=== PATIENT | female | born 1980 | race Caucasian/White ===

== ENCOUNTER 2023-04-07 20:08 | Outpatient (REF) | payer BC, SELFPAY ==
[2023-04-13 10:10] LABS: Age Gdln ACOG Testing Note (.); HPV Aptima Negative (Negative); IGP, Aptima HPV, rfx 16/18,45 Note (.)
== END 2023-04-07 20:09 | disposition home or self-care (01) ==
LOC: LAB 20:08
PROVIDERS: Visit Provider Obstetrics & Gynecology
DX: Z01.419 Encounter for gynecological examination (general) (routine) without abnormal findings (principal)
CPT/HCPCS: 87624; G0145

== ENCOUNTER 2023-04-10 10:14 | Outpatient (OUT) | payer BC, SELFPAY ==
--- NOTE | 2023-04-10 10:17 | MM_ITS ---
Patient: HERMINIA GREENWOOD Exam Date: 04/10/2023 : 1980 Gender:F Ordering : DR Harlan Taylor . Admission #: [id number] Family : Non-Staff Physician Order #: [id number] CLICK HERE TO VIEW EXAM RADIOLOGY REPORT PROCEDURE: MM TOMOSYNTHESIS SCREENING BI COMPARISON: None. INDICATIONS: Screening Calculator Name NCI Breast Cancer Risk Assessment Tool 5 Year Breast Cancer Risk 0.40% Lifetime Breast Cancer Risk 7.30% Personal Breast Cancer No Personal Ovarian Cancer No Treatments None Family Cancers None LOCATION: [facility] BREAST COMPOSITION: Scattered areas fibroglandular density. FINDINGS: DIAGNOSTIC CATEGORY 1--NEGATIVE. Scattered benign-appearing calcifications are present. Scattered benign-appearing lymph nodes are present. RIGHT BREAST: No significant suspicious finding. LEFT BREAST: No significant suspicious finding. RECOMMENDATIONS: ROUTINE MAMMOGRAM AND CLINICAL EVALUATION IN 12 MONTHS. PLEASE NOTE: A NORMAL MAMMOGRAM DOES NOT EXCLUDE THE POSSIBILITY OF BREAST CANCER. A CLINICALLY SUSPICIOUS PALPABLE LUMP SHOULD BE BIOPSIED. Dictated by: Ghulam Lopez MD on 04/10/2023 at 12:39 Approved by: Ghulam Lopez MD on 04/10/2023 at 12:40
--- NOTE | 2023-04-10 10:18 | US_ITS ---
The [address] [address] Patient Name: HERMINIA GREENWOOD MRN: [id number] date: 1980 Sex: F Assigned Patient Location: Current Patient Location: US Accession/Order Number: [id number] Exam Date: 04/10/2023 10:30 Report Date: 04/10/2023 10:59 At the request of: THANG KOCH Procedure: US pelvis w/ transvaginal EXAMINATION: US pelvis w/ transvaginal HISTORY: Pelvic Pain In Females R10.2 , menorrhagia COMPARISON: Ultrasound pelvis 02/02/2021 TECHNIQUE: Transabdominal and/or transvaginal sonographic examination was performed as indicated by examination type. FINDINGS: UTERUS: 1.7 cm nabothian cysts within cervix; otherwise normal size, echotexture, and appearance of the uterus. Uterus size: 9.3 x 5.8 x 5.0 cm ENDOMETRIUM: Normal homogeneous appearance. Endometrial thickness: RIGHT OVARY: Normal size and appearance. Blood flow present within ovary on color Doppler. Ovary size: 3.8 x 2.0 x 1.8 cm LEFT OVARY: Not seen. No suspicious adnexal findings. CUL-DE-SAC: Unremarkable. No significant free fluid. BLADDER: Unremarkable. OTHER: None. US/US pelvis w/ transvaginal IMPRESSION: 1. No acute or suspicious findings to account for patient's symptoms. 2. Prominent nabothian cysts within marshall of cervix; likely incidental. Electronically authenticated by: TREY SANCHEZ Date: 04/10/2023 10:59
[2023-04-10 11:19] LABS: Basophils Absolute Auto 0.1 10^3/uL (0.0-0.1); Basophils Percent Auto 1.2 % (0.2-2.0); Eosinophils Absolute Auto 0.1 10^3/uL (0.0-0.7); Eosinophils Percent Auto 1.6 % (0.9-7.0); Hematocrit 39.1 % (36.0-48.0); Hemoglobin 12.5 g/dL (12.0-16.0); Immature Granulocytes Abs Auto 0.02 10^3/uL (0.00-0.03); Immature Granulocytes Pct Auto 0.2 % (0.0-0.5); Lymphocytes Absolute Auto 2.9 10^3/uL (1.2-3.8); Lymphocytes Percent Auto 34.6 % (20.5-60.0); Mean Corpuscular Hemoglobin 28.2 pg (26.7-34.0); Mean Corpuscular Volume 88.1 fL (81.0-99.0); Monocytes Absolute Auto 0.9 10^3/uL (0.3-0.8); Monocytes Percent Auto 10.7 % (1.7-12.0); Neutrophils Absolute Auto 4.3 10^3/uL (1.4-6.5); Neutrophils Percent Auto 51.7 % (43.0-75.0); Platelet Count 349 10^3/uL (150-450); Red Blood Count 4.44 10^6/uL (4.20-5.40); Red Cell Distribution Width 13.2 % (11.0-15.0); White Blood Count 8.2 10^3/uL (4.0-11.0)
[2023-04-10 11:28] LABS: INR 0.95; Partial Thromboplastin Time 30.2 sec (22.3-36.2); Prothrombin Time 10.1 sec (9.0-11.6)
[2023-04-10 11:33] LABS: Estimated Average Glucose 111 mg/dL; Glycohemoglobin A1C 5.5 % (4.5-6.2)
[2023-04-10 11:44] LABS: HCG Quantitative <1 mIU/mL
== END 2023-04-10 10:15 | disposition home or self-care (01) ==
LOC: US 10:14
PROVIDERS: Visit Provider Obstetrics & Gynecology
DX: N92.1 Excessive and frequent menstruation with irregular cycle (principal); R10.2 Pelvic and perineal pain; Z12.31 Encounter for screening mammogram for malignant neoplasm of breast; Z01.419 Encounter for gynecological examination (general) (routine) without abnormal findings; N88.8 Other specified noninflammatory disorders of cervix uteri
CPT/HCPCS: 36415; 76830; 76856; 77063; 77067; 83036; 84443; 84702; 85025; 85610; 85730

== ENCOUNTER 2023-06-25 09:05 | Outpatient (OUT) | payer BC, SELFPAY ==
[2023-06-25 09:58] LABS: Basophils Absolute Auto 0.1 10^3/uL (0.0-0.1); Basophils Percent Auto 1.2 % (0.2-2.0); Eosinophils Absolute Auto 0.2 10^3/uL (0.0-0.7); Eosinophils Percent Auto 2.7 % (0.9-7.0); Hematocrit 38.5 % (36.0-48.0); Hemoglobin 12.1 g/dL (12.0-16.0); Immature Granulocytes Abs Auto 0.02 10^3/uL (0.00-0.03); Immature Granulocytes Pct Auto 0.2 % (0.0-0.5); Lymphocytes Absolute Auto 2.2 10^3/uL (1.2-3.8); Lymphocytes Percent Auto 26.6 % (20.5-60.0); Mean Corpuscular HGB Conc 31.4 g/dL (29.9-35.2); Mean Corpuscular Hemoglobin 27.5 pg (26.7-34.0); Mean Corpuscular Volume 87.5 fL (81.0-99.0); Mean Platelet Volume 9.5 fL (9.5-13.5); Monocytes Absolute Auto 0.8 10^3/uL (0.3-0.8); Monocytes Percent Auto 9.3 % (1.7-12.0); Platelet Count 302 10^3/uL (150-450); Red Cell Distribution Width 14.3 % (11.0-15.0); White Blood Count 8.4 10^3/uL (4.0-11.0)
--- NOTE | 2023-06-25 10:00 | XR_ITS ---
The [address] [address] Patient Name: HERMINIA GREENWOOD MRN: [id number] date: 1980 Sex: F Assigned Patient Location: [facility] Current Patient Location: [facility] Accession/Order Number: [id number] Exam Date: 06/25/2023 09:48 Report Date: 06/25/2023 10:12 At the request of: THANG KOCH Procedure: XR chest 2V EXAM: XR chest 2V HISTORY: Preop exam COMPARISON: None. TECHNIQUE: PA and lateral views of the chest. FINDINGS: The cardiomediastinal silhouette is normal. No focal consolidation is identified. There is no pneumothorax. No pleural effusion is noted. The osseous structures are intact. XR/XR chest 2V IMPRESSION: No acute cardiopulmonary process. Electronically authenticated by: JULES HOLBROOK Date: 06/25/2023 10:12
[2023-06-25 10:30] LABS: Bilirubin Total 0.3 mg/dL (0.2-1.0); Estimated GFR (African America >60 (>=60); Estimated GFR (Non-African Ame >60 (>=60); Glucose 86 mg/dL (74-106)
[2023-06-25 11:15] LABS: INR 0.95; Partial Thromboplastin Time 29.4 sec (22.3-36.2); Prothrombin Time 10.1 sec (9.0-11.6)
[2023-06-25 11:17] LABS: Alanine Aminotransferase 47 U/L (14-59); Albumin Globulin Ratio 1.1; Albumin Level 3.6 g/dL (3.4-5.0); Alkaline Phosphatase 73 U/L (46-116); Anion Gap 10.9; Aspartate Amino Transferase 20 U/L (15-37); BUN Creatinine Ratio 18.8; Bilirubin Direct <0.1 mg/dL (0.0-0.2); Calcium 8.6 mg/dL (8.5-10.1); Carbon Dioxide 26.1 mmol/L (21.0-32.0); Chloride 99 mmol/L (98-107); Globulin 3.4 g/dL; Sodium 132 mmol/L (136-145)
== END 2023-06-25 09:06 | disposition home or self-care (01) ==
LOC: PST 09:06
PROVIDERS: Visit Provider Obstetrics & Gynecology
DX: Z01.812 Encounter for preprocedural laboratory examination (principal); Z01.810 Encounter for preprocedural cardiovascular examination; R10.2 Pelvic and perineal pain; N94.10 Unspecified dyspareunia; N93.9 Abnormal uterine and vaginal bleeding, unspecified
CPT/HCPCS: 36415; 71046; 80048; 80076; 85025; 85610; 85730

== ENCOUNTER 2023-07-06 14:21 | Outpatient (OUT) | payer BC, SELFPAY | END 2023-07-06 14:22 | disposition home or self-care (01) | LOC: LAB 14:21 | PROVIDERS: Visit Provider Obstetrics & Gynecology | DX: R10.2 Pelvic and perineal pain (principal); N93.9 Abnormal uterine and vaginal bleeding, unspecified; N94.10 Unspecified dyspareunia | CPT/HCPCS: 36415; 86850; 86900; 86901 ==

== ENCOUNTER 2023-07-09 11:11 | Day surgery (SDC) | payer BC, SELFPAY ==
[2023-06-25 09:41] VITALS: BP 106/75; PULSE 78; RESP 18; TEMP 36.2; O2SAT 97; BMI 43.6
[2023-07-09] VITALS (9 sets, daily range): BP systolic 93–119; BP diastolic 59–76; PULSE 73–100; RESP 12–20; TEMP 36.4–36.7; O2SAT 94–99; BMI 45.0
[2023-07-09 11:44] LABS: HCG Quantitative <1 mIU/mL
[2023-07-09] MEDS: LACTATED RINGER'S SOLUTION 1,000 ML 50 ML IV ×2 (12:08→15:01)
[2023-07-09] MEDS: CEFAZOLIN SODIUM/DEXTROSE,ISO 2 GM/50 ML PIGGYBACK IV ×2 (13:32→19:57)
--- NOTE | 2023-07-09 16:25 | P.ON_ITS ---
Brief Operative Note Date of procedure: 07/09/23 Pre-op diagnosis: menorrhagia, dysmenorrhea, dyspareunia, pelvic pain Post-op diagnosis: same as pre-op Procedure: NAME OF PROCEDURE: ? Robotic assisted laparoscopic hysterectomy with cystoscopy, bilateral salpingectomy PROCEDURE:? The patient was taken back to the operating room, where she was prepped and draped in the normal sterile fashion after being placed in the dorsal lithotomy position.? Patient?s anesthesia was found to be adequate.? Surgical timeout was performed using two patient identifiers.? SCDs were on and in place.? Two grams of Ancef were given prior to the surgery.? Sterile Marques catheter was inserted.? Standard size VCare was secured to the uterine cervix and the surgeon changed gloves.? Attention then was turned to the patient's abdomen, where a supraumbilical incision was then made.? Two S retractors were used to identify the patient?s fascia.? The fascia was then tented up using Chrystal clamps and the patient?s fascia was incised sharply.? Patient?s abdomen was identified and entered bluntly.? The patient had the trocar placed and a pneumoperitoneum was obtained.? Approximately 4 liters of CO2 gas was used.? The camera was then placed through the trocar.? At this time, two robot trocars were placed in the patient?s left and right side, two hand widths from the midline, and this was placed under direct visualization.? The patient?s tube on the right side was tented up and the vessel sealer was then used to come across the mesosalpinx, and this was carried down to the uterine ovarian ligament.? The vessel sealer was carried down serially to the broad ligament, to the area of the bladder flap, which was then created anteriorly, and the uterine arteries were skeletonized and sealed using the vessel sealer.? The colpotomy was made using the monopolar cautery on cut, and this was carried circumferentially, posteriorly to anteriorly, until the uterus was amputated.? The specimen was then removed intact through the vagina, without difficulty.? The vagina was then closed using two running V-Loc in a non-lock fashion.? The robot was undocked.? The abdomen was desufflated.? The skin defects were closed using 4-0 Vicryl.? Please note, the fascia was closed using 0 Vicryl.? Sponge, lap and needle counts were correct x2.? Patient was taken to recovery room in stable condition.? The patient was awakened by Anesthesia first.? Patient tolerated procedure well.??Please note left ovarian cystectomy was performed using the vessel sealer Surgeon: Harlan Taylor Studio Camera Operator: Kika Sidhu Estimated blood loss (mL): 150 Pathology: other (uterus and tubes) Condition: stable Disposition: PACU
[2023-07-09] MEDS: OXYCODONE HCL/ACETAMINOPHEN 5MG/325MG 2 TAB PO (18:16)
[2023-07-09] MEDS: LACTATED RINGER'S SOLUTION 1,000 ML 125 ML IV (18:28)
[2023-07-09] MEDS: SIMETHICONE 80 MG TAB.CHEW PO (19:54)
[2023-07-09] MEDS: DOCUSATE SODIUM 100 MG CAPSULE PO (19:54)
[2023-07-10] MEDS: OXYCODONE HCL/ACETAMINOPHEN 5MG/325MG 1 TAB PO (00:14)
[2023-07-10] MEDS: CEFAZOLIN SODIUM/DEXTROSE,ISO 2 GM/50 ML PIGGYBACK IV (01:14)
[2023-07-10] MEDS: LACTATED RINGER'S SOLUTION 1,000 ML 125 ML IV (01:14)
[2023-07-10 05:02] LABS: Basophils Absolute Auto 0.1 10^3/uL (0.0-0.1); Basophils Percent Auto 0.5 % (0.2-2.0); Eosinophils Percent Auto 0.3 % (0.9-7.0); Hematocrit 35.4 % (36.0-48.0); Hemoglobin 11.3 g/dL (12.0-16.0); Immature Granulocytes Abs Auto 0.04 10^3/uL (0.00-0.03); Immature Granulocytes Pct Auto 0.4 % (0.0-0.5); Lymphocytes Percent Auto 17.7 % (20.5-60.0); Mean Corpuscular HGB Conc 31.9 g/dL (29.9-35.2); Mean Corpuscular Hemoglobin 28.3 pg (26.7-34.0); Mean Corpuscular Volume 88.5 fL (81.0-99.0); Mean Platelet Volume 9.7 fL (9.5-13.5); Monocytes Absolute Auto 0.8 10^3/uL (0.3-0.8); Monocytes Percent Auto 7.3 % (1.7-12.0); Neutrophils Absolute Auto 8.2 10^3/uL (1.4-6.5); Neutrophils Percent Auto 73.8 % (43.0-75.0); Platelet Count 370 10^3/uL (150-450); Red Cell Distribution Width 14.8 % (11.0-15.0); White Blood Count 11.2 10^3/uL (4.0-11.0)
[2023-07-10 05:14] VITALS: BP 92/58; PULSE 61; RESP 20; TEMP 36.8; O2SAT 96
[2023-07-10] MEDS: OXYCODONE HCL/ACETAMINOPHEN 5MG/325MG 2 TAB PO (06:06)
[2023-07-10] MEDS: MAGNESIUM HYDROXIDE 2,400 MG/10 ML ORAL.SUSP 2400 MG PO (06:07)
== END 2023-07-10 07:32 | disposition home or self-care (01) ==
LOC: SURGOUT 13:06 → MS 07-10 07:19 → SURGOUT 07-10 10:43
PROVIDERS: Visit Provider Obstetrics & Gynecology
PROC: (CPT 58571; principal; 2023-07-09 12:30)
DX: N93.9 Abnormal uterine and vaginal bleeding, unspecified (principal); N94.10 Unspecified dyspareunia; R10.2 Pelvic and perineal pain; F17.290 Nicotine dependence, other tobacco product, uncomplicated; N72 Inflammatory disease of cervix uteri; N80.03 Adenomyosis of the uterus
CPT/HCPCS: 58571; 36415; 84702; 85025; 88307; 96365; J2704

== ENCOUNTER 2023-08-08 18:24 | Emergency (ER) | payer BC, SELFPAY ==
[2023-08-08 18:31] VITALS: BP 110/70; PULSE 88; RESP 16; TEMP 36.6; O2SAT 100; BMI 43.4
--- NOTE | 2023-08-08 18:39 | CT_ITS ---
[address] [address] Patient Name: HERMINIA GREENWOOD MRN: [id number] date: 1980 Sex: F Assigned Patient Location: ER Current Patient Location: Accession/Order Number: [id number] Exam Date: 08/08/2023 19:03 Report Date: 08/08/2023 20:09 At the request of: PEPITO MURCIA Procedure: CT abdomen pelvis w con EXAM: CT abdomen pelvis w con; [id number] REASON FOR EXAM: vaginal bleeding post-hysterectomy TECHNIQUE: Helical CT images of the abdomen and pelvis were obtained after the administration of IV contrast. Multiplanar reformats were generated at the scanner. Dose reduction technique used: Automated exposure control and/or adjustment of the mA and/or kV according to patient size and/or use of iterative reconstruction technique. COMPARISON: None. FINDINGS: Visualized Chest: No pleural effusion or any significant pulmonary findings. Abdomen: Liver: Hepatic steatosis. Gallbladder: There are 2 gallstones which measure up to 17 mm in size. No evidence of acute cholecystitis. Bile Ducts: No significant biliary ductal dilatation. Pancreas: No mass, ductal dilatation, or inflammatory changes. Spleen: No splenomegaly or focal lesion. Adrenals: No nodules. Kidneys: -Contrast in the collecting systems may obscured small nonobstructing stones. No hydronephrosis. -No mass. Vascular: No aortic aneurysm. Lymph Nodes: No adenopathy. Abdominal Wall: Small fat-containing umbilical hernia. Pelvis: Status post hysterectomy. No fluid collection or other structural abnormality demonstrated. Bowel/Peritoneal Cavity/Mesentery: -No bowel obstruction or significant ileus. -No acute inflammatory changes. -No free air or free fluid. Musculoskeletal: No acute fracture or suspicious osseous lesion. CT/CT abdomen pelvis w con IMPRESSION: 1. Status post hysterectomy without evidence of fluid collection/hematoma or other etiology for vaginal bleeding demonstrated. 2. Cholelithiasis without evidence of acute cholecystitis. Electronically authenticated by: MARCUS COPOER Date: 08/08/2023 20:09
--- NOTE | 2023-08-08 18:46 | PC.NURSE ---
PT STATES DR KOCH PERFORMED LAP HYST ON 07/09. PT DENIES ANY COMPLICATIONS POST-OP. PT STATES STARTED VAGINAL BLEEDING ABOUT 2 HR AGO WITH QUARTER SIZE BLOOD CLOT. PT DENIES AND PAIN OR NAUSEA
[2023-08-08 19:41] LABS: Basophils Absolute Auto 0.1 10^3/uL (0.0-0.1); Basophils Percent Auto 1.1 % (0.2-2.0); Eosinophils Absolute Auto 0.1 10^3/uL (0.0-0.7); Eosinophils Percent Auto 1.4 % (0.9-7.0); Hematocrit 38.9 % (36.0-48.0); Hemoglobin 12.2 g/dL (12.0-16.0); Immature Granulocytes Abs Auto 0.03 10^3/uL (0.00-0.03); Immature Granulocytes Pct Auto 0.3 % (0.0-0.5); Lymphocytes Absolute Auto 2.6 10^3/uL (1.2-3.8); Lymphocytes Percent Auto 28.8 % (20.5-60.0); Mean Corpuscular HGB Conc 31.4 g/dL (29.9-35.2); Mean Corpuscular Hemoglobin 27.3 pg (26.7-34.0); Mean Platelet Volume 9.9 fL (9.5-13.5); Monocytes Absolute Auto 0.9 10^3/uL (0.3-0.8); Monocytes Percent Auto 10.1 % (1.7-12.0); Neutrophils Absolute Auto 5.3 10^3/uL (1.4-6.5); Neutrophils Percent Auto 58.3 % (43.0-75.0); Platelet Count 385 10^3/uL (150-450); Red Blood Count 4.47 10^6/uL (4.20-5.40); Red Cell Distribution Width 14.5 % (11.0-15.0)
[2023-08-08 19:48] LABS: Alanine Aminotransferase 35 U/L (14-59); Albumin Level 3.7 g/dL (3.4-5.0); Alkaline Phosphatase 73 U/L (46-116); Anion Gap 11.2; Aspartate Amino Transferase 18 U/L (15-37); BUN Creatinine Ratio 16.4; Bilirubin Total 0.2 mg/dL (0.2-1.0); Carbon Dioxide 28.4 mmol/L (21.0-32.0); Chloride 102 mmol/L (98-107); Estimated GFR (African America >60 (>=60); Estimated GFR (Non-African Ame >60 (>=60); Globulin 3.8 g/dL; Glucose 88 mg/dL (74-106); Potassium 3.6 mmol/L (3.5-5.1); Sodium 138 mmol/L (136-145); Total Protein 7.5 g/dL (6.4-8.2)
[2023-08-08 19:54] LABS: INR 0.95; Prothrombin Time 10.1 sec (9.0-11.6)
[2023-08-08 20:01] LABS: Partial Thromboplastin Time 30.2 sec (22.3-36.2)
--- NOTE | 2023-08-08 20:16 | ED.FEMALEGU1 ---
HPI - Female Genitourinary General Chief complaint: Vaginal Bleeding Stated complaint: hysterectomy 07-09-23, bleeding clots Time Seen by Provider: 08/08/23 18:39 Source: family Mode of arrival: walk-in History of Present Illness HPI Narrative: hysterectomy one month ago. Vaginal bleeding today. passed clot. No pain. no light headiness. No urinary symptoms. Otherwise feels well. Does not take blood thinners Related Data Home Medications Medication Instructions Recorded Confirmed alprazolam 0.5 mg tablet 0.5 mg PO DAILY 06/25/23 08/08/23 escitalopram oxalate 10 mg tablet 10 mg PO DAILY 06/25/23 08/08/23 Allergies Allergy/AdvReac Type Severity Reaction Status Date / Time No Known Drug Allergies Allergy Verified 06/25/23 09:25 Review of Systems ROS Status of ROS 10 or more systems reviewed and unremarkable except as noted in history and below [facility] Medical History (Updated 08/08/23 @ 21:16 by Blayne Leonardo MD) Abnormal uterine bleeding ?N93.9 - Abnormal uterine and vaginal bleeding, unspecified (ICD-10) Anxiety ?F41.9 - Anxiety disorder, unspecified (ICD-10) Asthma ?J45.909 - Unspecified asthma, uncomplicated (ICD-10) Dyspareunia Hyperactive gag reflex ?J39.2 - Other diseases of pharynx (ICD-10) Kidney stones ?N20.0 - Calculus of kidney (ICD-10) Migraine ?G43.909 - Migraine, unspecified, not intractable, without status migrainosus (ICD-10) Pelvic pain ?R10.2 - Pelvic and perineal pain (ICD-10) Pneumonia ?J18.9 - Pneumonia, unspecified organism (ICD-10) Surgical History (Updated 06/25/23 @ 09:33 by Yokasta Hebert NP) History of endometrial ablation ?Z98.890 - Other specified postprocedural states (ICD-10) History of tubal ligation ?Z98.51 - Tubal ligation status (ICD-10) Family History (Updated 06/25/23 @ 09:33 by Yokasta Hebert NP) Other Family history of diabetes mellitus Family history of hypertension Family history of stroke Social History (Updated 06/25/23 @ 09:29 by Yokasta Hebert NP) Within the past year, how often did you have a drink containing alcohol: monthly or less Do you use any of these nicotine containing products: vaping products Non-prescribed substance use: denies use 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 Highest level of school completed/degree received: high school graduate Do you think of yourself as: straight/heterosexual Gender Identity: female Exam Constitutional Vital Signs, click to edit/add: Last Vital Signs Temp 97.8 F 08/08/23 18:31 Pulse 88 08/08/23 18:31 Resp 16 08/08/23 18:31 BP 110/70 08/08/23 18:31 Pulse Ox 100 08/08/23 18:31 O2 Del Method Room Air 08/08/23 18:31 Common normals: no apparent distress, oriented x3, healthy appearing and well nourished HENMT Common normals: normocephalic and head/scalp atraumatic Respiratory Common normals: normal respiratory effort, no retractions, no use of accessory muscles and clear to auscultation bilaterally Cardio Common normals: regular rate, regular rhythm, S1 normal heart sound and S2 normal heart sound GI Common normals: Normal to inspection, nondistended, normoactive bowel sounds present, soft to palpation and non-tender Other: normal external exam, speculum exam with small clot found in the vault. No active bleeding. Extremity Common normals: normal to inspection and full ROM Neuro Common normals: oriented x3, CN's II-XII intact bilaterally, moves all extremities, no focal motor deficits and no sensory deficits noted Psych Appearance: grossly normal Course Vital Signs Vital signs: Vital Signs Temperature 97.8 F 08/08/23 18:31 Pulse Rate 88 08/08/23 18:31 Respiratory Rate 16 08/08/23 18:31 Blood Pressure 110/70 08/08/23 18:31 Pulse Oximetry 100 08/08/23 18:31 Oxygen Delivery Method Room Air 08/08/23 18:31 Temperature 97.8 F 08/08/23 18:31 Pulse Rate 88 08/08/23 18:31 Respiratory Rate 16 08/08/23 18:31 Blood Pressure 110/70 08/08/23 18:31 Pulse Oximetry 100 08/08/23 18:31 Oxygen Delivery Method Room Air 08/08/23 18:31 MDM - Female Genitourinary MDM Narrative Medical decision making narrative: patient is s/p total hysterectomy one month ago. presents with vaginal bleeding. no pain. speculum exam with small clot in the vault. CBC WNL. CT abdomen/pelvis without acute findings or any evidence of bleeding. Patient asymptomatic and clinically stable. 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 She is to return if bleeding recurs Lab Data Labs: Lab Results 08/08/23 Range/Units 18:40 WBC 9.0 (4.0-11.0) 10^3/uL RBC 4.47 (4.20-5.40) 10^6/uL Hgb 12.2 (12.0-16.0) g/dL Hct 38.9 (36.0-48.0) % MCV 87.0 (81.0-99.0) fL MCH 27.3 (26.7-34.0) pg MCHC 31.4 (29.9-35.2) g/dL RDW 14.5 (11.0-15.0) % Plt Count 385 (150-450) 10^3/uL MPV 9.9 (9.5-13.5) fL Neut % (Auto) 58.3 (43.0-75.0) % Lymph % (Auto) 28.8 (20.5-60.0) % [place] % (Auto) 10.1 (1.7-12.0) % Eos % (Auto) 1.4 (0.9-7.0) % Baso % (Auto) 1.1 (0.2-2.0) % Neut # (Auto) 5.3 (1.4-6.5) 10^3/uL Lymph # (Auto) 2.6 (1.2-3.8) 10^3/uL [place] # (Auto) 0.9 H (0.3-0.8) 10^3/uL Eos # (Auto) 0.1 (0.0-0.7) 10^3/uL Baso # (Auto) 0.1 (0.0-0.1) 10^3/uL Abs Immat Gran (auto) 0.03 (0.00-0.03) 10^3/uL Imm/Tot Granulo (auto) 0.3 (0.0-0.5) % PT 10.1 (9.0-11.6) sec INR 0.95 APTT 30.2 (22.3-36.2) sec Sodium 138 (136-145) mmol/L Potassium 3.6 (3.5-5.1) mmol/L Chloride 102 (98-107) mmol/L Carbon Dioxide 28.4 (21.0-32.0) mmol/L Anion Gap 11.2 BUN 12.0 (7.0-18.0) mg/dL Creatinine 0.73 (0.55-1.02) mg/dL Est GFR ( Amer) >60 (>=60) Est GFR (Non-Af Amer) >60 (>=60) BUN/Creatinine Ratio 16.4 Glucose 88 (74-106) mg/dL Calcium 9.0 (8.5-10.1) mg/dL Total Bilirubin 0.2 (0.2-1.0) mg/dL AST 18 (15-37) U/L ALT 35 (14-59) U/L Alkaline Phosphatase 73 (46-116) U/L Total Protein 7.5 (6.4-8.2) g/dL Albumin 3.7 (3.4-5.0) g/dL Globulin 3.8 g/dL Albumin/Globulin Ratio 1.0 Discharge Plan Discharge Chief Complaint: Vaginal Bleeding Clinical Impression: Vaginal bleeding Patient Disposition: Home, Self-Care Prescriptions / Home Meds: No Action escitalopram oxalate 10 mg tablet 10 mg PO DAILY alprazolam 0.5 mg tablet 0.5 mg PO DAILY Instructions: Vaginal Hysterectomy (DC) Additional Instructions: follow up with Dr Taylor thursday Stand Alone Forms: Portal Instructions Referrals: Harlan Taylor DO [Physician] - As soon as possible (Call on Thursday) Physician,Non-Staff, MD [Primary Care Provider] - 1 week Discharge Date/Time: 08/08/23 21:26
== END 2023-08-08 21:26 | disposition home or self-care (01) ==
PROVIDERS: Emergency Medicine; Emergency Provider Internal Medicine
DX: N93.9 Abnormal uterine and vaginal bleeding, unspecified (principal); Z90.710 Acquired absence of both cervix and uterus; Z79.899 Other long term (current) drug therapy; F41.9 Anxiety disorder, unspecified; J45.909 Unspecified asthma, uncomplicated; Z87.442 Personal history of urinary calculi; Z87.01 Personal history of pneumonia (recurrent); Z98.51 Tubal ligation status; F17.290 Nicotine dependence, other tobacco product, uncomplicated
CPT/HCPCS: 36415; 74177; 80053; 85025; 85610; 85730; 99285; Q9967

== ENCOUNTER 2025-05-05 06:49 | Outpatient (OUT) | payer BC, SELFPAY ==
--- OUTSIDE RECORDS SUMMARY | 2025-05-05 06:53 | XMS_ITS | CCD ---
Author Organization [facility] Care Team Providers Care Gmat Tutor Name Role Phone ZEE, DR DESIR Admitting Unavailable ZEE, DR DESIR Attending Unavailable ZEE, DR DESIR Admitting Unavailable ZEE, DR DESIR Attending Unavailable ZEE, DR DESIR Consulting Unavailable ZEE, DR DESIR Admitting Unavailable ZEE, DR DESIR Attending Unavailable ZEE, DR DESIR Consulting Unavailable Policaro, Inna Consulting Unavailable ZEE, DR DESIR Admitting Unavailable ZEE, DR DESIR Attending Unavailable ZEE, DR DESIR Primary Care Unavailable ZEE, DR DESIR Consulting Unavailable ZEE, DR DESIR Admitting Unavailable ZEE, DR DESIR Attending Unavailable ZEE, DR DESIR Admitting Unavailable ZEE, DR DESIR Attending Unavailable ZEE, DR DESIR Primary Care Unavailable ZEE, DR DESIR Consulting Unavailable CHRISTOPHER CLARIBEL Consulting Unavailable Nuria Stephen Unavailable Sarina Rg MD Primary Care Provider Sarina Rg MD Primary Care Provider SARINA RG Attending Unavailable SARINA RG Referring Unavailable SARINA RG Primary Care Unavailable SARINA RG Attending Unavailable SARINA RG Referring Unavailable SARINA RG Primary Care Unavailable Sarina Rg MD Primary Care Provider MANISHA IBRAHIM Attending Unavailable SARINA RG Referring Unavailable MANISHA IBRAHIM Referring Unavailable Medications Current Medications Medication Drug Class(es) Dates Sig (Normalized) Sig (Original) dextromethorphan hydrobromide 15 mg / guaiFENesin 400 mg / pseudoephedrine hydrochloride 60 mg oral tablet (1 source) alpha-Adrenergic Agonist, Uncompetitive W-cnzcfk-H-aspartate Receptor Antagonist, Sigma-1 Agonist Start: 08-15-2021 take 4 tablets by mouth every twenty-four hours as needed Capmist DM 60-15-400 MG as needed Orally every 4-6 hours as needed, max 4 tablets in 24 hours for 5 days Aug, Active fluticasone propionate 0.05 mg/actuat metered dose nasal spray (1 source) Corticosteroid Start: 08-15-2021 take 1 spray(s) nasal route once daily Flonase Allergy Relief 50 MCG/ACT 1 spray in each nostril Nasally Once a day for 14 day(s) Aug, Active ibuprofen 800 mg oral tablet (4 sources) Nonsteroidal Anti-inflammatory Drug Start: 07-09-2023 End: 07-15-2024 take 1 tablet by mouth every eight hours ibuprofen 800 MG tablet Take 800 mg by mouth every 8 (eight) hours 07/09/2023 Active meloxicam 15 mg oral tablet (2 sources) Nonsteroidal Anti-inflammatory Drug Start: 04-04-2025 End: 04-25-2025 take 1 tablet by mouth once daily meloxicam (Mobic) 15 MG tablet Indications: Peroneal tendinitis of left lower extremity , Sinus tarsi syndrome of left foot Take 1 tablet (15 mg) by mouth Daily for 21 days 21 tablet 04/04/2025 04/25/2025 Active phentermine hydrochloride 37.5 mg oral tablet (5 sources) Sympathomimetic Amine Anorectic Start: 08-01-2024 End: 03-21-2025 take 45-49.9 tablets by mouth once daily before breakfast phentermine (ADIPEX-P) 37.5 mg tablet Indications: Class 3 severe obesity due to excess calories without serious comorbidity with body mass index (BMI) of 45.0 to 49.9 in adult ([facility]) Take 1 tablet (37.5 mg total) by mouth every morning before breakfast. 30 tablet 2 03/21/2025 Active predniSONE 10 mg oral tablet (2 sources) Start: 04-04-2025 predniSONE (Deltasone) 10 MG tablet Indications: Peroneal tendinitis of left lower extremity , Sinus tarsi syndrome of left foot Take twice daily for 5 days, then take once daily for 5 days. 15 tablet 04/04/2025 Active TIRZEPATIDE SC (2 sources) TIRZEPATIDE SC Inject under the skin Active Completed/Discontinued Medications Medication Drug Class(es) Dates Sig (Normalized) Sig (Original) acetaminophen 325 mg / oxyCODONE hydrochloride 5 mg oral tablet (3 sources) Opioid Agonist Start: 07-09-2023 End: 04-04-2025 take 1 tablet by mouth every six hours oxyCODONE-acetamin ophen (Percocet) 5-325 MG tablet Take 1 tablet by mouth every 6 (six) hours. 07/09/2023 04/04/2025 Discontinued (Therapy completed) escitalopram 10 mg oral tablet (1 source) Serotonin Reuptake Inhibitor Start: 07-07-2023 End: 07-15-2024 take 1 tablet by mouth in the morning escitalopram (LEXAPRO) 10 mg tablet Indications: Anxiety TAKE 1 TABLET BY MOUTH IN THE MORNING 30 tablet 2 07/07/2023 07/15/2024 Discontinued (Therapy completed) tirzepatide, weight loss, 2.5 mg/0.5 mL pen injector (2 sources) Start: 07-15-2024 End: 08-01-2024 tirzepatide, weight loss, 2.5 mg/0.5 mL pen injector Indications: Class 3 severe obesity due to excess calories without serious comorbidity with body mass index (BMI) of 45.0 to 49.9 in adult ([facility]) Inject 2.5 mg under the skin every 7 days. 2 mL 07/15/2024 08/01/2024 Discontinued Start: 07-15-2024 tirzepatide, w eight loss, 2.5 mg/0.5 mL pen injector Indications: Class 3 severe obesity due to excess calories without serious comorbidity with body mass index (BMI) of 45.0 to 49.9 in adult ([facility]) Inject 2.5 mg under the skin every 7 days. 2 mL 07/15/2024 Active Problems Active Problems Problem Classification Problem Date Documented Date Episodic/Chronic Acquired foot deformities (2 sources) Ankle joint deformity; Translations: [Varus deformity, not elsewhere classified, left ankle] 04-04-2025 Episodic Contraceptive and procreative management (1 source) Encounter for removal of intrauterine contraceptive device; Translations: [ENC REMOVAL IU CONTRACEPT DEVICE] Onset: 03-13-2021 Episodic Menstrual disorders (4 sources) Excessive and frequent menstruation with regular cycle; Translations: [EXCESS FREQ MENSTRUATION W/REG CYCL] Onset: 02-22-2021 Chronic Other connective tissue disease (1 source) Pain in lower limb Onset: 03-21-2025 Episodic Other connective tissue disease (1 source) Foot pain Onset: 03-21-2025 Episodic Other connective tissue disease (2 sources) Peroneal tendinitis of left lower limb; Translations: [Peroneal tendinitis, left leg] 04-04-2025 Episodic Other nervous system disorders (2 sources) Difficulty walking; Translations: [Difficulty in walking, not elsewhere classified] 04-04-2025 Chronic Other nervous system disorders (2 sources) Paresthesia of foot ; Translations: [Paresthesia of skin] 03-22-2025 Episodic Other nervous system disorders (1 source) Paresthesia of skin; Translations: [Paresthesia of skin] Onset: 03-21-2025 Episodic Other non-traumatic joint disorders (2 sources) Sinus tarsi syndrome of left ankle; Translations: [Pain in left ankle and joints of left foot] 04-04-2025 Episodic Other non-traumatic joint disorders (2 sources) Instability of joint of left ankle; Translations: [Other instability, left ankle] 04-04-2025 Episodic Other nutritional; endocrine; and metabolic disorders (3 sources) Severe obesity; Translations: [Class 3 severe obesity due to excess calories without serious comorbidity with body mass index (BMI) of 45.0 to 49.9 in adult ([facility])] 07-15-2024 Chronic Other nutritional; endocrine; and metabolic disorders (1 source) Body mass index (BMI) 45.0-49.9, adult; Translations: [Body mass index (BMI) 45.0-49.9, adult] Onset: 07-15-2024 Chronic Other nutritional; endocrine; and metabolic disorders (1 source) Morbid (severe) obesity due to excess calories; Translations: [Morbid (severe) obesity due to excess calories] Onset: 07-15-2024 Chronic Other screening for suspected conditions (not mental disorders or infectious disease) (4 sources) Encounter for screening for malignant neoplasm of cervix; Translations: [ENC SCREENING MALIG NEOPLASM CERV] Onset: 01-30-2021 Episodic Substance-related disorders (1 source) Nicotine dependence, cigarettes, uncomplicated; Translations: [NICOTINE DEPEND CIGARETTES UNCOMP] Onset: 03-13-2021 Chronic Unclassified (1 source) CONTACT W/AND (SUSP) EXPOS COVID-19; Translations: [CONTACT W/AND (SUSP) EXPOS COVID-19] Onset: 02-21-2021 Unclassified (1 source) Obesity, class 3; Translations: [Obesity, class 3] Onset: 07-15-2024 Unclassified (1 source) discuss weight loss options Onset: 07-15-2024 Past or Other Problems Problem Classification Problem Date Documented Date Episodic/Chronic Immunizations and screening for infectious disease (2 sources) Encounter for screening for human papillomavirus (HPV); Translations: [Contact with and (suspected) exposure to other viral communicable diseases] Onset: 02-07-2021 Resolved: 08-15-2021 Episodic Mood disorders (3 sources) Mood disorders Onset: 06-15-2023 Resolved: 03-21-2025 06-15-2023 Other upper respiratory infections (1 source) Acute upper respiratory infection, unspecified Onset: 08-15-2021 Resolved: 08-15-2021 Episodic Results Test Name Value Interpretation Reference Range Facility XR Foot - left 3 [facility] Result: AP, medial oblique, lateral views are weight-bearing. Significantly increased calcaneal inclination and decreased talar declination. Bullet hole sinus tarsi. Stacking of the metatarsals noted on the AP view. Slight metatarsus adductus. No fractures or dislocations noted. [facility] Study observation (narrative) [facility] ApiaryID Quick Testingon 2020 Result Negative [facility] Other CBC AUTO DIFFon 02-22-2021 BASO # 0.1 103/ul Normal 0.0-0.1 [facility] Comment on above: Performed By: #### C BC #### [facility] [address] [place], [place] [address] Leah Alejo Basophils/100 WBC (Bld) 1.3 % Normal 0.2-2.0 [facility] Comment on above: Performed By: #### C BC #### [facility] [address] [place], [place] [address] Leah Alejo EO # 0.2 103/ul Normal 0.0-0.7 [facility] Comment on above: Performed By: #### C BC #### [facility] [address] [place], [place] [id number] Leah Sapna Eosinophils/100 WBC (Bld) 2.5 % Normal 0.9-7.0 [facility] Comment on above: Performed By: #### C BC #### [facility] [address] [place] [address] Leah Sapna Erythrocyte distribution width (RBC) [Ratio] 13.9 % Normal 11.0-15.0 [facility] Comment on above: Performed By: #### C BC #### [facility] [address] [place] [address] Leah Sapna Hematocrit (Bld) [Volume fraction] 39.3 % Normal 36.0-48.0 [facility] Comment on above: Performed By: #### C BC #### [facility] [address] [place] [address] Leah Sapna Hemoglobin (Bld) [Mass/Vol] 12.5 g/dL Normal 12.0-16.0 [facility] Comment on above: Performed By: #### C BC #### [facility] [address] [place] [address] Leah Sapna IG # 0.05 10e3/ul Critically high 0.00-0.03 [facility] Comment on above: Performed By: #### C BC #### [facility] [address] [place] [address] Leah Sapna IG % 0.5 % Normal 0.0-0.5 [facility] Comment on above: Performed By: #### C BC #### [facility] [address] [place], [place] [id number] Leah Sapna LYMPH # 2.7 103/ul Normal 1.2-3.8 [facility] Comment on above: Performed By: #### C BC #### [facility] [address] [place] [address] Leah Sapna Lymphocytes/100 WBC (Bld) 29.2 % Normal 20.5-60.0 [facility] Comment on above: Performed By: #### C BC #### [facility] [address] [place], [place] [id number] Leah Sapna MANUAL DIFF REQ NO Normal [facility] Comment on above: Performed By: #### C BC #### [facility] [address] [place], [place] [id number] Leah Sapna MCH (RBC) [Entitic mass] 28.3 pg Normal 26.7-34.0 [facility] Comment on above: Performed By: #### C BC #### [facility] [address] [place] [address] Leah Sapna MCHC (RBC) [Mass/Vol] 31.8 g/dL Normal 29.9-35.2 [facility] Comment on above: Performed By: #### C BC #### [facility] [address] [place] [address] Leah Sapna MCV (RBC) [Entitic vol] 89.1 fL Normal 81.0-99.0 [facility] Comment on above: Performed By: #### C BC #### [facility] [address] [place], [place] [id number] Leah Sapna MONO # 0.9 103/ul Critically high 0.3-0.8 [facility] Comment on above: Performed By: #### C BC #### [facility] [address] [place] [address] Leah Sapna Monocytes/100 WBC (Bld) 10.0 % Normal 1.7-12.0 [facility] Comment on above: Performed By: #### C BC #### [facility] [address] [place] [address] Leah Sapna NEUT # 5.2 103/ul Normal 1.4-6.5 [facility] Comment on above: Performed By: #### C BC #### [facility] [address] [place], [place] [id number] Leah Sapna Neutrophils/100 WBC (Bld) 56.5 % Normal 43.0-75.0 [facility] Comment on above: Performed By: #### C BC #### [facility] [address] [place], [place] [address] Leah Alejo Platelet mean volume (Bld) [Entitic vol] 9.2 fL Critically low 9.5-13.5 [facility] Comment on above: Performed By: #### C BC #### [facility] [address] [place], [place] [id number] Leah Alejo PLT 329 103/ul Normal 150-450 [facility] Comment on above: Performed By: #### C BC #### [facility] [address] [place] [address] Leah Alejo RBC 4.41 106/ul Normal 4.20-5.40 [facility] Comment on above: Performed By: #### C BC #### [facility] [address] [place] [address] Leah Aeljo WBC 9.2 103/ul Normal 4.0-11.0 [facility] Comment on above: Performed By: #### C BC #### [facility] [address] [place] [address] Leah Alejo PREG QUANT HCGon 02-22-2021 HCG QUANT <1 Normal [facility] Comment on above: Performed By: #### P REGQNT #### [facility] [address] [place] [address] Leah Alejo HCG RANGE SEE BELOW Normal [facility] Comment on above: Result Comment: 5-50 0-1 WEEK 40-300 1-2 WEEKS 100-1,000 2-3 WEEKS 500-6,000 3-4 WEEKS 5,000-200,000 1-2 MONTHS 10,000-100,000 2-3 MONTHS 3,000-50,000 2ND TRIMESTER 1,000-50,000 3RD TRIMESTER Performed By: #### P REGQNT #### [facility] [address] [place] [address] Leah Alejo [facility] SARS-CoV-2 (COVID-19) RNA JONNY+probe Ql (Unsp spec) Not detected Normal NOT DETECTED [facility] Comment on above: Result Comment: This test is not yet approved or cleared by the [place] FDA. When there are no FDA-approved or cleared tests available, and other criteria are met, FDA can make tests available under an emergency access mechanism called an Emergency Use Authorization (EUA). The EUA for this test is supported by the [place] of Health and Human Service's (HHS's) declaration that circumstances exist to justify the emergency use of in vitro diagnostics for the detection and/or diagnosis of the virus that causes COVID-19. This EUA will remain in effect (meaning this test can be used) for the duration of the COVID-19 declaration justifying emergency of IVDs, unless it is terminated or revoked by FDA (after which the test may no longer be used). When diagnostic testing is negative, the possibility of a false negative should be considered in the context of a patient's recent exposures and the presence of clinical signs and symptoms consistent with SARS-CoV-2. Performed By: #### C VDTB #### [facility] [address] [place] [address] Leah Alejo PAP ACOG PANEL 2: 30 to 65on 02-05-2021 . . Normal [facility] Comment on above: Result Comment: Perf ormed at: WB Performed By: #### [id number] #### [facility] [address] [place] [address] Leah Alejo Age Gdln ACOG Testing 30-65 Normal [facility] Comment on above: Performed By: #### [id number] #### [facility] [address] [place] [address] Leah Ngen DIAGNOSIS: Comment Normal [facility] Comment on above: Result Comment: NEGA TIVE FOR INTRAEPITHELIAL LESION OR MALIGNANCY. Performed at: WB Performed By: #### [id number] #### [facility] [address] [place] [address] Leah Alejo HPV Aptima Negative Normal Negative [facility] Comment on above: Result Comment: This nucleic acid amplification test detects fourteen high-risk HPV types (16,18,31,33,35,39,45,51,52,56,58,59,66,68) without differentiation. Performed at: =G Performed By: #### [id number] #### [facility] [address] [place] [address] Leah Alejo Methodology: Comment Normal [facility] Comment on above: Result Comment: This liquid based ThinPrep(R) pap test was screened with the use of an image guided system. Performed at: WB Performed By: #### [id number] #### [facility] [address] [place] [address] Leah Ngen Note: Comment Normal [facility] Comment on above: Result Comment: The Pap smear is a screening test designed to aid in the detection of premalignant and malignant conditions of the uterine cervix. It is not a diagnostic procedure and should not be used as the sole means of detecting cervical cancer. Both false-positive and false-negative reports do occur. . Performed at: WB Performed By: #### [id number] #### [facility] [address] [place] [address] Leah Alejo Performed by: Comment Normal [facility] Comment on above: Result Comment: Eduardo Rivas Proof Technician (ASCP) Performed at: WB Performed By: #### [id number] #### [facility] [address] [place] [address] Leah Alejo Specimen adequacy: Comment Normal [facility] Comment on above: Result Comment: Sati sfactory for evaluation. Endocervical and/or squamous metaplastic cells (endocervical component) are present. Performed at: WB Performed By: #### [id number] #### [facility] [address] [place] [address] Leah Alejo US PELVIS AND TRANSVAGon US PELVIS AND TRANSVAG TRANSABDOMINAL AND TRANSVAGINAL PELVIC ULTRASOUND WITH PELVIS COLOR DUPLEX HISTORY: Abnormal uterine bleeding. COMPARISON: None. FINDINGS: TRANSABDOMINAL: The uterus measures 11.4 x 4.8 x 5.9 cm. There are no myometrial masses. The endometrium measures 8 mm. There is an IUD within the endometrial canal in good position. There is a 1.6 x 1.0 x 1.0 cm nabothian cyst. TRANSVAGINAL: The right ovary measures 2.0 x 2.3 x 3.3 cm. The left ovary measures 2.3 x 2.5 x 2.2 cm. There is no free fluid seen within the cul-de-sac. COLOR DUPLEX: There is normal blood flow seen to the right ovary. It is difficult to evaluate the left ovary due to positioning. There are normal right ovarian arterial and venous spectral waveforms. The right resistive index measures 0.42. IMPRESSION: Nabothian cyst. Normal right ovarian color Doppler. Electronically authenticated by: INNA TORREZ Date: 2021-02-04 15:32 Normal [facility] CBC AUTO DIFFon 02-02-2021 BASO # 0.1 103/ul Normal 0.0-0.1 [facility] Comment on above: Performed By: #### C BC ####[facility] [address] [place] [address] Sapna Basophils/100 WBC (Bld) 1.1 % Normal 0.2-2.0 [facility] Comment on above: Performed By: #### C BC ####[facility] [address] [place], [place] [id number] Sapna EO # 0.3 103/ul Normal 0.0-0.7 [facility] Comment on above: Performed By: #### C BC ####[facility] [address] [place], [place] [address]Gerken Sapna Eosinophils/100 WBC (Bld) 2.8 % Normal 0.9-7.0 [facility] Comment on above: Performed By: #### C BC ####[facility] [address] [place], [place] [id number] Sapna Erythrocyte distribution width (RBC) [Ratio] 13.3 % Normal 11.0-15.0 [facility] Comment on above: Performed By: #### C BC ####[facility] [address] [place], [place] [address]Gerken Sapna Hematocrit (Bld) [Volume fraction] 39.6 % Normal 36.0-48.0 [facility] Comment on above: Performed By: #### C BC ####[facility] [address] [place], [place] [address]Gerken Sapna Hemoglobin (Bld) [Mass/Vol] 12.5 g/dL Normal 12.0-16.0 [facility] Comment on above: Performed By: #### C BC ####[facility] [address] [place] [address]Leah Alejo IG # 0.05 10e3/ul Critically high 0.00-0.03 [facility] Comment on above: Performed By: #### C BC ####[facility] Labe[address]qzdiu[address]75 [address]poornima Aleoj IG % 0.5 % Normal 0.0-0.5 [facility] Comment on above: Performed By: #### C BC ####[facility] [address] [place], [place] [address]poornima Alejo LYMPH # 3.4 103/ul Normal 1.2-3.8 [facility] Comment on above: Performed By: #### C BC ####[facility] [address] [place], [place] [address]poornima Alejo Lymphocytes/100 WBC (Bld) 34.2 % Normal 20.5-60.0 [facility] Comment on above: Performed By: #### C BC ####[facility] [address] [place] [address] Sapna MANUAL DIFF REQ NO Normal [facility] Comment on above: Performed By: #### C BC ####[facility] [address] [place] [address] Sapna MCH (RBC) [Entitic mass] 28.2 pg Normal 26.7-34.0 [facility] Comment on above: Performed By: #### C BC ####[facility] [address] [place] [address] Sapna MCHC (RBC) [Mass/Vol] 31.6 g/dL Normal 29.9-35.2 [facility] Comment on above: Performed By: #### C BC ####[facility] [address] [place] [address] Sapna MCV (RBC) [Entitic vol] 89.2 fL Normal 81.0-99.0 [facility] Comment on above: Performed By: #### C BC ####[facility] [address] [place] [id number] Sapna MONO # 1.0 103/ul Critically high 0.3-0.8 [facility] Comment on above: Performed By: #### C BC ####[facility] [address] Sapna Monocytes/100 WBC (Bld) 10.5 % Normal 1.7-12.0 [facility] Comment on above: Performed By: #### C BC ####[facility] [address] [place], [place] [address]ken Sapna NEUT # 5.0 103/ul Normal 1.4-6.5 [facility] Comment on above: Performed By: #### C BC ####[facility] [address] [place], [place] [address]poornima Alejo Neutrophils/100 WBC (Bld) 50.9 % Normal 43.0-75.0 [facility] Comment on above: Performed By: #### C BC ####[facility] [address] [place], [place] [id number] Alejo Platelet mean volume (Bld) [Entitic vol] 9.2 fL Critically low 9.5-13.5 [facility] Comment on above: Performed By: #### C BC ####[facility] [address] [place] [address] Sapna PLT 322 103/ul Normal 150-450 [facility] Comment on above: Performed By: #### C BC ####[facility] [address] [place], [place] [address]Gerken Sapna RBC 4.44 106/ul Normal 4.20-5.40 [facility] Comment on above: Performed By: #### C BC ####[facility] [address] [place], [place] [address]Gerken Sapna WBC 9.8 103/ul Normal 4.0-11.0 [facility] Comment on above: Performed By: #### C BC ####[facility] [address] [place] [address]Leah Alejo PREG QUANT HCGon 02-02-2021 HCG QUANT <1 Normal [facility] Comment on above: Performed By: #### T SH, PREGQNT #### [facility] [address] [place] [address] Leah Alejo HCG RANGE SEE BELOW Normal [facility] Comment on above: Result Comment: 5-50 0-1 WEEK 40-300 1-2 WEEKS 100-1,000 2-3 WEEKS 500-6,000 3-4 WEEKS 5,000-200,000 1-2 MONTHS 10,000-100,000 2-3 MONTHS 3,000-50,000 2ND TRIMESTER 1,000-50,000 3RD TRIMESTER Performed By: #### T SH, PREGQNT #### [facility] [address] [place] [address] Leah Alejo PROTIMEon 02-02-2021 INR Coag (PPP) [Relative time] 0.94 {INR} Normal [facility] Comment on above: Performed By: #### P TT, PT #### [facility] [address] [address] Leah Alejo INR GUIDELINES SEE BELOW Normal [facility] Comment on above: Result Comment: RENAY RED INR: 2.0 - 3.0 CONDITIONS NOT LISTED BELOW 2.5 - 3.5 FOR PROSTHETIC HEART VALVE REPLACEMENT 2.5 - 3.5 RECURRENT THROMBOSIS Performed By: #### P TT, PT #### [facility] [address] [address] Leah Alejo PT Coag (PPP) [Time] 10.3 s Normal 9.0-11.6 [facility] Comment on above: Performed By: #### P TT, PT #### [facility] [address] [address] Leah Alejo PTTon 02-02-2021 aPTT Coag (Bld) [Time] 27.6 s Normal 22.3-36.2 [facility] Comment on above: Performed By: #### P TT, PT #### [facility] [address] [place], [place] [address] Leah Alejo TSHon 02-02-2021 TSH 4.874 uIU/mL Critically high 0.470-4.[address] [facility] Comment on above: Performed By: #### T SH, PREGQNT #### [facility] [address], [place] [address] Leah Alejo TSH RANGE SEE BELOW Normal [facility] Comment on above: Result Comment: <0.3 4 UIU/ml HYPERTHYROID 0.34-5.60 UIU/ml EUTHYROID >5.60 UIU/ml HYPOTHYROID Performed By: #### T SH, PREGQNT #### [facility] [address] [id number] Leah Alejo Vital Signs Date Time Vital Sign Value Performing Clinician Facility 04-04-2025 14:32-0400 Body height 167.6 cm Manisha Ibrahim DPM Work Phone: [facility] 04-04-2025 14:32-0400 Body mass index (BMI) [Ratio] 34.54 kg/m2 Manisha Ibrahim DPM Work Phone: [facility] 04-04-2025 14:32-0400 Body weight 97.07 kg Manisha Ibrahim DPM Work Phone: [facility] 03-21-2025 15:17-0400 Body height 165.1 cm Sarina Rg MD Work Phone: [facility] 03-21-2025 15:17-0400 Body mass index (BMI) [Ratio] 36.61 kg/m2 Sarina Rg MD Work Phone: [facility] 03-21-2025 15:17-0400 Body temperature 98.01 [degF] Sarina Rg MD Work Phone: [facility] 03-21-2025 15:17-0400 Body weight 99.79 kg Sarina Rg MD Work Phone: [facility] 03-21-2025 15:17-0400 Diastolic blood pressure 72 mm[Hg] Sarina Rg MD Work Phone: [facility] 03-21-2025 15:17-0400 Heart rate 90 /min Sarina Rg MD Work Phone: [facility] 03-21-2025 15:17-0400 SaO2% (BldA) [Mass fraction] 98 % Sarina Rg MD Work Phone: [facility] 03-21-2025 15:17-0400 Systolic blood pressure 126 mm[Hg] Sarina Rg MD Work Phone: [facility] 07-15-2024 14:03-0500 Body mass index (BMI) [Ratio] 45.74 kg/m2 Sarina Rg MD Work Phone: [facility] 07-15-2024 14:03-0500 Body weight 125.65 kg Sarina Rg MD Work Phone: [facility] 07-15-2024 14:03-0500 Diastolic blood pressure 59 mm[Hg] Sarina Rg MD Work Phone: [facility] 07-15-2024 14:03-0500 Heart rate 80 /min Sarina Rg MD Work Phone: [facility] 07-15-2024 14:03-0500 Systolic blood pressure 128 mm[Hg] Sarina Rg MD Work Phone: [facility] 08-15-2021 10:15-0500 Body height 168.91 cm Nuria Stephen Other [facility] Other 08-15-2021 10:15-0500 Body mass index (BMI) [Ratio] 34.97 kg/m2 Nuria Angientjennifer Other [facility] Other 08-15-2021 10:15-0500 Body temperature 99 [degF] Nuria Adamsntjennifer Other [facility] Other 08-15-2021 10:15-0500 Body weight 99.79 kg Nuria Angientjennifer Other [facility] Other 08-15-2021 10:15-0500 Respiratory rate 18 /min Nuria Angienty Other [facility] Other 08-15-2021 10:15-0500 SaO2% (BldA) [Mass fraction] 98 % Nuria Angienty Other [facility] Other Encounters Encounter Date Encounter Type Care Provider Facility Start: 04-04-2025 End: 04-04-2025 Office outpatient new 45 minutes Manisha Ibrahim DPM [facility] Comment on above: Peroneal tendinitis of left lower extremity (Primary Dx); Sinus tarsi syndrome of left foot; Instability of left ankle joint; Difficulty walking; Varus deformity, not elsewhere classified, left ankle Start: 04-04-2025 End: 04-04-2025 ambulatory MANISHA IBRAHIM Not Available Start: 04-04-2025 End: 04-04-2025 Bamboo flowsheet Manisha Ibrahim DPM [facility] Start: 04-04-2025 End: 04-04-2025 Bamboo flowsheet Manisha Ibrahim DPM [facility] Start: 03-21-2025 End: 03-21-2025 Office outpatient visit 15 minutes Sarina Rg MD Work Phone: [facility] Internal Medicine/Pediatrics Comment on above: Paresthesia of left foot (Primary Dx); Class 3 severe obesity due to excess calories without serious comorbidity with body mass index (BMI) of 45.0 to 49.9 in adult ([facility]) Start: 03-21-2025 End: 03-21-2025 ambulatory SARINA RG [facility] Start: 07-29-2024 End: 08-01-2024 [facility] Comment on above: Medication Problem Start: 07-15-2024 End: 07-15-2024 Office outpatient visit 15 minutes Sarina Rg MD Work Phone: [facility] Internal Medicine[facility] Comment on above: Class 3 severe obesi ty due to excess calories without serious comorbidity with body mass index (BMI) of 45.0 to 49.9 in adult (CMS-HCC) (Primary Dx) Start: 07-15-2024 End: 07-15-2024 ambulatory SARINA España SCIRINA [facility] Start: 08-15-2021 End: 08-15-2021 ambulatory Nuria Ginty Other [facility] Other Start: 08-15-2021 Office outpatient vi sit 15 minutes Nuria Ginty [facility] Start: 02-22-2021 End: 02-22-[address] THANG TAYLOR Facility:[facility] Start: 02-21-2021 Encounter for preprocedural laboratory examination DR THANG TAYLOR [facility] Start: 02-19-[address] THANG TAYLOR Facility :[facility] Start: 02-18-2021 End: 02-19-[address] THANG TAYLOR Facility:[facility] Start: 02-18-2021 End: 02-19-2021 Encounter for preprocedural laboratory examination DR THANG TAYLOR Facility:[facility] Start: 02-12-[address] THANG TAYLOR Facility :[facility] Start: 02-02-2021 End: 02-03-[address] THANG TAYLOR Facility:[facility] Start: 01-30-2021 End: 01-30-[address] THANG TAYLOR Facility:[facility] Procedures Date Procedure Procedure Detail Performing Clinician Start: 04-04-2025 Radex foot complete minimum 3 views Manisha Ibrahim DPM Work Phone: Start: 03-21-2025 Adult depression scr eening assessment Sarina Rg MD Work Phone: Start: 06-15-2023 Adult depression scr eening assessment Sarina Rg MD Work Phone: Start: 04-07-2023 Microscopic observat ion [Identifier] in Cervix by Cyto stain Sarina Rg MD Work Phone: Plan of Treatment Date Care Activity Detail Author Start: 04-17-2028 Screening for malign ant neoplasm of cervix HPV/Cotest [facility] Start: 04-07-2028 Screening for malign ant neoplasm of cervix [facility] Start: 04-07-2026 Screening for malign ant neoplasm of cervix Pap Smear [facility] Start: 03-21-2026 Adult BMI Screening Adult BMI Screen ing [facility] Start: 03-21-2026 Depression Screening Depression Scre ening [facility] Start: 03-21-2026 Tobacco Screening Tobacco Screening [facility] Start: 01-31-2026 DTaP,Tdap and Td Vaccines (3 - Td or Tdap) DTaP,Tdap and Td Vaccines (3 - Td or Tdap) [facility] Start: 07-15-2025 Adult BMI Screening Adult BMI Screen ing [facility] Start: 07-15-2025 Tobacco Screening Tobacco Screening [facility] Start: 05-09-2025 End: 05-09-2025 Patient encounter procedure 05/09/2025 3:15 PM EDT Office Visit [facility] [address] [place] [id number] Manisha Ibrahim DPM [address] [place] [address] [facility] Start: 05-08-2025 Influenza vaccination [facility] Start: 04-04-2025 End: 04-04-2025 Patient encounter procedure 04/04/2025 2:30 PM EDT Office Visit [facility] [address] [place] [id number] Manisha Ibrahim DPM [address] [place] [id number] Arrived [facility] Comment on above: Arrived Start: 08-25-2024 Adult BMI Screening Adult BMI Screen ing [facility] Start: 08-25-2024 Tobacco Screening Tobacco Screening [facility] Start: 06-15-2024 Depression Screening Depression Scre ening [facility] Start: 05-08-2024 COVID-19 Vaccine ( season) COVID-19 Vaccine () [facility] Start: 05-08-2024 Influenza vaccination Influenza Vacc ine [facility] Start: 2022 Screening for malign ant neoplasm of breast Mammogram [facility] Start: 2000 Adult BMI Follow Up Plan Adult BMI Follow Up Plan [facility] Immunizations Immunization Date Immunization Notes Care Provider Fa cility 05-08-2022 influenza, injectabl e, quadrivalent, preservative free Sarina Rg MD Work Phone: [facility] 05-08-2022 influenza virus vaccine, unspecified formulation Sarina Rg MD Work Phone: [facility] 07-27-2021 Influenza, injectabl e, Madin [place] Canine Kidney, preservative free, quadrivalent Sarina Rg MD Work Phone: [facility] 01-03-2021 COVID-19, mRNA, LNP- S, PF, 100mcg/0.5mL Dose Sarina Rg MD Work Phone: [facility] 12-06-2020 COVID-19, mRNA, LNP- S, PF, 100mcg/0.5mL Dose Sarina Rg MD Work Phone: [facility] 06-27-2020 influenza virus vaccine, unspecified formulation Sarina Rg MD Work Phone: [facility] 06-18-2019 influenza, injectabl e, quadrivalent, preservative free Sarina Rg MD Work Phone: [facility] 09-23-2017 influenza, injectabl e, quadrivalent, contains preservative Sarina Rg MD Work Phone: [facility] 07-04-2016 influenza virus vaccine, unspecified formulation Sarina Rg MD Work Phone: [facility] 02-01-2016 tetanus toxoid, redu martha diphtheria toxoid, and acellular pertussis vaccine, adsorbed Sarina Rg MD Work Phone: [facility] 09-29-2013 influenza virus vaccine, unspecified formulation Sarina Rg MD Work Phone: [facility] 09-30-2010 tetanus toxoid, redu martha diphtheria toxoid, and acellular pertussis vaccine, adsorbed Sarina Rg MD Work Phone: [facility] Payers Date Payer Category Payer [facility] er [id number] 2024 Unknown [id number] 2017 [facility] Managed Care - Other ANTH [id number] 1982 Unknown [id number] [id number] 1982 Unknown [id number]. [id number] 1982 Unknown [id number]. [id number] 1982 Unknown [id number]. [id number] 1982 Unknown [id number] [id number] 1982 Unknown [id number] [id number] 1982 Unknown [id number] [id number] 1982 Unknown [id number]. [id number] 1982 Unknown [id number] [id number] 1982 Unknown [id number] [id number] 1959 Self-pay 1957 Unknown [id number] Social History Date Type Detail Facility Unknown if ever smoked [facility] Other Start: 07-15-2024 End: 04-04-2025 Sex Assigned At [facility] Start: 08-25-2023 Tobacco smoking status NHIS Ex-smoker [facility] History of tobacco use Current smoker [facility] History of tobacco use Cigarette Smoker P [facility] Start: 08-25-2023 Tobacco use and exposure Smokeless tobacco non-user [facility] Start: 07-15-2024 End: 03-21-2025 Alcoholic beverage intake Ex-drinker (finding) [facility] Start: 07-15-2024 End: 04-04-2025 History of Social function [facility] How hard is it for y ou to pay for the very basics like food, housing, medical care, and heating Not very hard [facility] Adolescent depressio n screening assessment 0 [facility] Start: 1980 Sex assigned at Female [facility] Start: 04-12-2015 Sex Female (finding) [facility] Start: 12-10-2018 Gender identity Identifies as female gender (finding) [facility] Start: 12-10-2018 Sexual orientation Heterosexual (finding) [facility] smoking consumption unknown [facility] Start: 1980 Sex assigned at Not on file [facility] Start: 04-04-2025 Tobacco smoking status NHIS Never smoked tobacco [facility] Start: 04-04-2025 Tobacco use and exposure User of smokeless tobacco [facility] Start: 04-04-2025 Alcoholic beverage intake Current drinker of alcohol (finding) [facility] Start: 04-04-2025 Alcohol Comment rarely [facility] Clinical Notes 02-22-2021 to 04-04-2025 Manisha Ibrahim DPM - 04/04/2025 2:30 PM Elisa Rg MD - 03/21/2025 3:30 PM EDTTelephone Encounter - Magali Burns CMA - 07/29/2024 12:52 PM EST Note Date & Type Note Facility 04-04-2025 History of Presen t illness Narrative Images from the original note were not included. Subjective Patient ID: Rahel Darby is a 44 y.o. 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 The more she is on her feet the more uncomfortable is becomes. She has tried a topical CBD without much relief. /SS: 9.5). HPI This is a new patient who presents to clinic with concern of left foot pain. Described as sharp, stabbing pain on the lateral aspect of the foot and ankle. This has been going on for about a year and she thinks it is getting worse. 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 She has not tried any treatment except for topical CBD. She does note that it feels better when she wears supportive shoes. Review of Systems Constitutional: Negative for activity change and appetite change. Respiratory: Negative for chest tightness and shortness of breath. Cardiovascular: Negative for chest pain. Musculoskeletal: Positive for arthralgias and gait problem. Skin: Negative for color change and wound. Neurological: Negative for weakness and numbness. Psychiatric/Behavioral: Negative for agitation and behavioral problems. Hematological: Does not bruise/bleed easily. Endocrine: Negative for cold intolerance and heat intolerance. Allergic/Immunologic: Negative for immunocompromised state. Past medical History Past Medical History: Diagnosis Date Abnormal uterine bleeding (AUB) Elevated TSH History of abnormal cervical Pap smear Medications Current Outpatient Medications: ibuprofen 800 MG tablet, Take 800 mg by mouth every 8 (eight) hours, Disp: , Rfl: phentermine (Adipex-P) 37.5 MG tablet, Take 37.5 mg by mouth in the morning. Take before meals., Disp: , Rfl: TIRZEPATIDE SC, Inject under the skin, Disp: , Rfl: meloxicam (Mobic) 15 MG tablet, Take 1 tablet (15 mg) by mouth Daily for 21 days, Disp: 21 tablet, Rfl: 0 predniSONE (Deltasone) 10 MG tablet, Take twice daily for 5 days, then take once daily for 5 days., Disp: 15 tablet, Rfl: 0 Allergies Patient has no known allergies. Past Surgical History Past Surgical History: Procedure Laterality Date ENDOMETRIAL ABLATION PAP SMEAR 03/14/2019 negative ROBOTIC ASSISTED HYSTERECTOMY 07/09/2023 robotic assisted with cystoscopy SALPINGECTOMY Bilateral 07/09/2023 TUBAL LIGATION Family History Family History Problem Relation Name Age of Onset Hypertension Mother Heart disease Maternal Grandmother Diabetes Paternal Grandmother Stroke Paternal Grandfather Objective Physical Exam Constitutional: Appearance: She is obese. HENT: Head: Normocephalic and atraumatic. Cardiovascular: Pulses: Normal pulses. Pulmonary: Effort: Pulmonary effort is normal. No respiratory distress. Abdominal: Palpations: There is no mass. Musculoskeletal: Cervical back: No rigidity. Comments: Weightbearing examination reveals cavovarus morphology. She is able to perform a double heel rise test but this seems to aggravate the left foot pain. Left foot: Isolated and maximal tenderness along the sinus tarsi with some tenderness at the 5th metatarsal base as well. Muscle strength 5/5 for all quadrants with some mild tenderness on resisted eversion. Mild tenderness with forced inversion of the subtalar joint. Ankle dorsiflexion -5 degrees with the knee extended, flexed. Skin: Capillary Refill: Capillary refill takes less than 2 seconds. Findings: No lesion or rash. Neurological: Mental Status: She is alert. Comments: No loss of protective sensation, gross sensation intact. Psychiatric: Mood and Affect: Mood normal. Behavior: Behavior normal. XR foot 3+ views left Imaging Result: AP, medial oblique, lateral views are weight-bearing. Significantly increased calcaneal inclination and decreased talar declination. Bullet hole sinus tarsi. Stacking of the metatarsals noted on the AP view. Slight metatarsus adductus. No fractures or dislocations noted. Assessment/Plan ICD-10-CM 1. Peroneal tendinitis of left lower extremity M76.72 XR foot 3+ views left predniSONE (Deltasone) 10 MG tablet meloxicam (Mobic) 15 MG tablet 2. Sinus tarsi syndrome of left foot M25.572 XR foot 3+ views left predniSONE (Deltasone) 10 MG tablet meloxicam (Mobic) 15 MG tablet 3. Instability of left ankle joint M25.372 4. Difficulty walking R26.2 5. Varus deformity, not elsewhere classified, left ankle M21.172 XR foot 3+ views left Patient was examined and evaluated. 3 views of the affected foot were taken in office today and I discussed my findings. I discussed causes and treatment options for peroneal tendinitis. Patient's symptomatology is consistent with peroneal tendinitis and sinus tarsi notice in the setting of cavovarus deformity. At this time I am recommending a 10 day steroid taper followed by 3 weeks of meloxicam to reduce inflammation and to help with his symptomatology. Prescriptions sent to patient's pharmacy. Additionally I have recommended contrast bathing nightly to help flush the inflammatory mediators from the painful area. I have recommended an ASO brace for stabilization and limitation of motion of the ankle and rearfoot. Patient agreed and was fitted for the appropriate brace. Goals of therapy include prevent further injury, stabilization, reduction of stress and pressure to the injured area. Anticipated time of use - at least 1 month. At the time of dispensing it is suitable and not substandard. Patient is able to apply the brace independently. It is comfortable to walk and fits inside the shoe. I also recommend orthotic therapy to redistribute pressure more evenly across the foot and try and reduce lateral column overload. Patient was wearing sandals today and I recommend that she bring a pair of tennis shoes to try the power steps. We will see how these modalities work and follow-up in 1 month. If there has been no improvement at that time I may consider an MRI. This note was created with the assistance of a speech recognition program. While intending to generate a timely document that accurately reflects the content of the visit, no guarantee can be provided that every grammatical or spelling mistake has been or will be identified or corrected. Thank you for your understanding. Manisha Ibrahim DPM documented in this encounter [facility] 03-21-2025 History of Presen t illness Narrative Subjective Patient ID: Rahel Darby is a 44 y.o. female. Comes in with burning involving the lateral aspect of her L foot. No injury. She notes an area of tingling in her lateral left thigh but does not have radiation down the leg and the two seem independent of each other. No rash, no motor symptoms in her leg. Also, she has had good weight loss with GLP1 therapy but that has now sort of plateau. She did better when she was on both GLP1 and Adipex. The following portions of the patient's history were reviewed and updated as appropriate: allergies, current medications, past medical history, and problem list. Review of Systems Objective Physical Exam Constitutional: Comments: Weight is above ideal target Musculoskeletal: Comments: L foot warm with normal color, normal pulse. Not tender to palpation. No deformity. Neurological: Comments: No identifiable sensory or motor loss in her foot or the L lateral thigh. Assessment/Plan This symptom in her foot seems to arise locally in the foot (not radicular or more proximal nerve entrapment) and will get Podiatry opinion. She can take another course of Adipex to see if that helps her continue to lose weight. Diagnoses and all orders for this visit: Paresthesia of left foot - Ambulatory referral to Podiatry (Non[facility]); Future Class 3 severe obesity due to excess calories without serious comorbidity with body mass index (BMI) of 45.0 to 49.9 in adult ([facility]) - phentermine (ADIPEX-P) 37.5 mg tablet; Take 1 tablet (37.5 mg total) by mouth every morning before breakfast. documented in this encounter [facility] 07-29-2024 Miscellaneous Notes Patient called and said her Tirzepatide is not covered by insurance and would like you to call in Phentermine in for her instead. documented in this encounter [facility] 07-29-2024 Telephone encounter Note Patient called and said her Tirzepatide is not covered by insurance and would like you to call in Phentermine in for her instead. [facility] 07-15-2024 History of Presen t illness Narrative Subjective Patient ID: Rahel Darby is a 43 y.o. female. Comes in for discussion of weight loss. She has been unsuccessful in maintaining significant weight loss with diet and lifestyle alone. She has previously been on Adipex with minimal benefit. She does not have contraindication to G LP 1 agonist therapy. No known biliary or pancreatic history. Family history is negative. The following portions of the patient's history were reviewed and updated as appropriate: allergies, current medications, past medical history, past social history, past surgical history, and problem list. Review of Systems Objective Physical Exam Constitutional: Comments: Blood pressure acceptable. BMI well above target. Neurological: Mental Status: She is alert. Assessment/Plan Risks and benefits of weight loss medication reviewed with her. Dose will need titrated depending on tolerability and benefit. Further pending her response. Diagnoses and all orders for this visit: Class 3 severe obesity due to excess calories without serious comorbidity with body mass index (BMI) of 45.0 to 49.9 in adult ([facility]) - tirzepatide, weight loss, 2.5 mg/0.5 mL pen injector; Inject 2.5 mg under the skin every 7 days. [facility] Evaluation note Encounter Date Diagnosis Assessment Notes Aug, Contact with and (suspected) exposure to other viral communicable diseases (ICD-10 - Z20.828) Aug, Viral URI with cough (ICD-10 - J06.9) Advised patient that COVID antigen test was negative today. Advised patient that will tx as viral URI. Advised patient to NOT take old rx of Doxycycline and to properly dispose of medication. No signs of wheezing/rhonc hi/rales present on exam. Supportive care as directed, increase fluids and rest, Tylenol/Motrin as directed, rx of Capmist and Flonase as directed, cool mist humidifier, throat lozenges. Advised patient to be cautious using other OTC cold medications unless directed by provider. Discussed infection control practices such as good hand washing and mask wearing. Patient requesting work note to miss 4 days, explained that this will not be completed and that she is okay to go back to work. Patient to follow up with PCP if sx persist or worsen despite treatment. Immediate eval for SOB, difficulty, chest pain, fevers that do not break with antipyretic or any other concerning symptoms as reviewed on patient education handout. Patient verbalizes understanding and is agreeable to treatment plan. Patient left in stable condition Aug, Other Additional time spent conducting pre-visit phone call, screening for symptoms, instructions on social distancing, application and removal of PPE, and cleaning of examination room, equipment and supplies was preformed. Patient education given for testing methodology and results. Patient care instructions given in writting by [facility] [place]NOTE 2] Care At Home document [employer] Other 06-18-2021 NoteThe [place], [place] NAME: RAHEL DARBY DATE OF : MEDICAL REC#: [id number] SURVEY ANALYST: [address] ADMIT DATE: 02/22/2021 10:26:00 DNA SEQUENCING ASSOCIATE DATE: 02/25/2021 08:00 DICTATING PHYSICIAN: THANG TAYLOR DICTATION DATE: 02/22/2021 12:00 OPERATIVE NOTE OPERATION DATE: 02-22-21 ANESTHETIC:General. ENGINE REPAIR SUPERVISOR:None. PREOPERATIVE DIAGNOSIS:Menorrhagia. POSTOPERATIVE DIAGNOSIS:Menorrhagia. PROCEDURE NAME:Nicci endometrial ablation, removal of IUD. BLOOD LOSS:5 mL. FINDINGS: Normal appearing uterus, no gross evidence of polyps, fibroids, or malignancy. Both ostia seen. PROCEDURE: The patient was taken back to the OR where she was prepped and draped in the normal sterile fashion after being placed in the dorsal lithotomy position, after being placed under general anesthesia without difficulty. A weighted speculum was placed in the patient's vagina, the anterior tip of the cervix was identified and grasped with a single tooth tenaculum. The patient was gently sounded to roughly 10 cm. The cervical length was noted to be 5 cm. The Nicci ablation apparatus was set to approximately 5 in length. This was placed in through the cervix and into the uterus. After the seal was tested, at that time the total ablation of 120 seconds was performed with the Nicci without difficulty. All instruments were removed from the vagina. please note iud was removed prior to ablation using polyp forceps Electronically Authenticated and Edited by: Thang Taylor DO on 03/11/2021 03:49 PM EDT [facility] Signed and Approved by: DR THANG TAYLOR . 03/11/2021 15:49:00[facility] Diagnosis Class 3 severe obesity due to excess calories without serious comorbidity with body mass index (BMI) of 45.0 to 49.9 in adult ([facility])- Primary [facility] Diagnosis Paresthesia of left foot- Primary Class 3 severe obesity due to excess calories without serious comorbidity with body mass index (BMI) of 45.0 to 49.9 in adult ([facility]) [facility] Diagnosis Peroneal tendinitis of left lower extremity- Primary 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 Difficulty walking Difficulty in walking Varus deformity, not elsewhere classified, left ankle [facility] N[facility] - Reported* Type Description Date Surgical History tubal ligation Hospitalization History childbirths [facility] Other InstructionsNot on filedocumented in this encounter [facility] on filedocumented in this encounter [facility] [employer] [facility] Summary Purpose Family History No Family History Records FoundNo Family History Records FoundNo Family History Records Found Advance Directives No Advanced Directives Records FoundNo Advanced Directives Records FoundNo Advanced Directives Records Found Additional Source Comments INFORMATION SOURCE (unrecogn ized section and content) DATE CREATED AUTHOR 03/14/2021 [facility] DATE CREATED AUTHOR AUTHOR'S ORGANIZ ATION 03/25/2025 [facility] DATE CREATED AUTHOR AUTHOR'S ORGANIZ ATION 04/06/2025 [facility] Special[facility] EPIC REASON FOR VISIT (unrecogniz ed section and content) Reason Comments discuss weight loss options Maybe ozempi c Reason Onset Date Comments Medication Problem 07/29/2024 Reason Comments Leg Pain Left leg Foot Pain Left foot Reason Comments Foot Pain Pt is here today for shooting, burning pains 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 The more she is on her feet the more uncomfortable is becomes. She has tried a topical CBD without much relief. SS: 9.5 Specialty Diagnoses / Procedures Referred By Contac t Referred To Contact Podiatry Diagnoses Paresthesia of left foot Procedures 221 ([email or web address]) - Ambulatory referral to Podiatry ([facility]) Sarina Rg MD [address] [facility], [address] [place] [address] Phone: tel: fax: Manisha Ibrahim DPM [address] [facility] [place] [address] Phone: tel: fax: Referral ID Status Reason Start Date Expiration Date Visits Re quested Visits Authorized [id number] Closed 03/21/2025 03/21/2026 1 1 Care Teams (unrecognized sec tion and content) Gmat Tutor Relationship Specialty Start Date End Date Sarina Rg MD [address] [place] [address], [address] [place] [address] PCP - General Pediatrics 11/09/19 Gmat Tutor Relationship Specialty Start Date End Date Sarina Rg MD [address] [place] [address], [address] [place] [address] PCP - General Pediatrics 11/09/19 Gmat Tutor Relationship Specialty Start Date End Date Sarina Rg MD [address] [place] [address], [address] [place] [address] PCP - General Pediatrics 11/09/19 Gmat Tutor Relationship Specialty Start Date End Date Sarina Rg MD [address] [place] [address], [address] [place] [address] PCP - General Family Medicine 03/23/25 Gmat Tutor Relationship Specialty Start Date End Date Sarina Rg MD [address] [place] [address], [address] [place] [address] PCP - General Family Medicine 03/23/25 FOR RECORDS PERTAINING TO PATIENTS WHO ARE OR HAVE BEEN ENROLLED IN A CHEMICAL DEPENDENCY/SUBSTANCEABUSE PROGRAM, SOME INFORMATION MAY BE OMITTED. This clinical summary was aggregated from multiple sources. Caution should be exercised in using it in the provision of clinical care. This summary normalizes information from multiple sources, and as a consequence, information in this document may materially change the coding, format and clinical context of patient data. In addition, data may be omitted in some cases. CLINICAL DECISIONS SHOULD BE BASED ON THE PRIMARY CLINICAL RECORDS. [facility]. provides no warranty or guarantee of the accuracy or completeness of information in this document.
--- NOTE | 2025-05-05 06:54 | MM_ITS ---
Patient Name: HERMINIA GREENWOOD MR#: [id number] : 1980 Exam Date: 05/05/2025 Ordering Doctor: DR THANG KOCH . RADIOLOGY REPORT PROCEDURE: MM TOMOSYNTHESIS SCREENING BI COMPARISON: MM TOMOSYNTHESIS SCREENING BI, 04/10/2023. INDICATIONS: Screening Calculator Name NCI Breast Cancer Risk Assessment Tool 5 Year Breast Cancer Risk 0.50% Lifetime Breast Cancer Risk 7.20% Personal Breast Cancer No Personal Ovarian Cancer No Treatments None Family Cancers None LOCATION: [facility] BREAST COMPOSITION: There are scattered areas of fibroglandular density. FINDINGS: DIAGNOSTIC CATEGORY 1--NEGATIVE. RIGHT BREAST: No significant suspicious finding. LEFT BREAST: No significant suspicious finding. RECOMMENDATIONS: ROUTINE MAMMOGRAM AND CLINICAL EVALUATION IN 12 MONTHS. Dictated by: Zhao Grossman DO on 05/05/2025 at 15:36 Approved by: Zhao Grossman DO on 05/05/2025 at 15:37
== END 2025-05-05 06:50 | disposition home or self-care (01) ==
LOC: MAMMO 06:51
PROVIDERS: Visit Provider Obstetrics & Gynecology
DX: Z12.31 Encounter for screening mammogram for malignant neoplasm of breast (principal)
CPT/HCPCS: 77063; 77067

== ENCOUNTER 2025-05-31 15:17 | Outpatient (REF) | payer BC, SELFPAY ==
--- OUTSIDE RECORDS SUMMARY | 2025-05-19 10:15 | XMS_ITS | Encounter Summary ---
Author Organization [facility] tem Address [id number] [address] [place] [address] Care Team Providers Care Belt Measurer Name Role Phone Nicolás Lopez MD Primary Care Provider [phone] Reason for Visit * Reason Comments Hand Pain Left ring finger swe lling, red, pus Hair/Scalp Problem Itching, scabbing th en picks the scab Encounter Details Date Type Department Care Team (Late Contact Info) Description 05/19/2025 10:15 AM EDT Office Visit [facility] [address] [place] [address] [address] [place] [address] Nicolás Lopez MD [address] [place] [address], [address] [place], [place] [id number] Paronychia of finger of left hand (Primary Dx); Impetigo Social History Tobacco Use Types Packs/Day Years Used Date Smoking Tobacco: Former Cigarettes Smokeless Tobacco: Never Alcohol Use Standard Drinks/Week Comments Not Currently 0 (1 standard drink = 0.6 oz pur e alcohol) Overall Financial Resource Strain (CARDIA) Answe r Date Recorded How hard is it for you to pa y for the very basics like food, housing, medical care, and heating? Not very hard 04/07/2023 PHQ-2 Answer Date Recorded Total Score 0 03/21/2025 PRAPARE - Transportation Answer Date Re corded In the past 12 months, has l ack of transportation kept you from medical appointments or from getting medications? No 09/2022 In the past 12 months, has l ack of transportation kept you from meetings, work, or from getting things needed for daily living? No 04/07/2023 Housing Instability Answer Date Recorde d Are you worried or concerned that in the next two months you may not have stable housing that you own, rent or stay in as a part of a household? No 04/07/2023 Childcare Answer Date Recorded Childcare Unknown 02/16/2019 Employment Answer Date Recorded Employment Unknown 02/16/2019 Hunger Screening Answer Date Recorded Within the past 12 months we worried whether our food would run out before we got money to buy more. Never True 03/21/2025 Within the past 12 months th e food we bought just didn't last and we didn't have money to get more. Never True 03/21/2025 Purpose - Life Answer Date Recorded Purpose and direction in life Unknown Comments No Sex and Gender Information Value Date Recorded Sex Assigned at Female 12/10/2018 9:41 AM EDT Legal Sex Female 11:41 AM EDT Gender Identity Female 12/10/2018 9:41 AM EDT Sexual Orientation Straight 12/10/2018 9: 41 AM EDT documented as of this encounter Last Filed Vital Signs Vital Sign Reading Time Taken Comments Blood Pressure 118/67 05/19/2025 10:13 AM EDT Pulse 90 05/19/2025 10:13 AM EDT Temperature - - Respiratory Rate - - Oxygen Saturation - - Inhaled Oxygen Concentration - - Weight 98.3 kg (216 lb 12.8 oz) 025 10:13 AM EDT Height 165.1 cm (5' 5 ) 05/19/2025 10:1 3 AM EDT Body Mass Index 36.08 05/19/2025 10:13 AM EDT documented in this encounter Progress Notes * Nicolás Lopez MD - 05/19/2025 10:15 AM EDT Subjective Patient ID: Rahel Darby is a 44 y.o. female. Comes in with a couple of concerns. For several weeks she has had irritation around her fingernail on the ring finger of her left hand. She does have artificial nails. Also she has spots of irritation on her scalp and then she scratches at them and they do not heal. The following portions of the patient's history were reviewed and updated as appropriate: allergies, current medications, past medical history, and problem list. Review of Systems Objective Physical Exam Constitutional: Comments: Afebrile Skin: Comments: Paronychia without definite pus collection involving the left ring finger. Erythematous excoriated spots on the scalp at the hairline posteriorly consistent with superficial bacterial skin infection. Assessment/Plan She will soak her finger in dish water or Epsom salt several times daily. She should avoid scratching with her nails. If this does not resolve or something more develops she will let me know. Diagnoses and all orders for this visit: Paronychia of finger of left hand - clindamycin (CLEOCIN) 300 mg capsule; Take 1 capsule (300 mg total) by mouth 3 (three) times a day for 7 days. Impetigo - mupirocin (BACTROBAN) 2 % ointment; Apply 1 Application topically 3 (three) times a day. documented in this encounter Plan of Treatment Not on file documented as of this encounter Visit Diagnoses Diagnosis Paronychia of finger of left hand- Primary Impetigo documented in this encounter Additional Health Concerns Assessment Noted Time PHQ-9 Depression Total Score: 0 03/21/20 25 3:17 PM EDT documented as of this encounter Care Teams Belt Measurer Relationship Specialty Start Date End Date Nicolás Lopez MD [address] [place] [address], 1 [place] [address] PCP - General Pediatrics 11/09/19 documented as of this encounter
--- OUTSIDE RECORDS SUMMARY | 2025-05-31 08:30 | XMS_ITS | Encounter Summary ---
Author Organization [facility] Address [address] [place] [address] Care Team Providers Care Behavior Analyst Name Role Phone Nicolás Lopez MD Primary Care Provider [phone] Reason for Visit * Reason Comments Well Women Visit Encounter Details Date Type Department Care Team (Latest Contact Info) Description 05/31/2025 8:30 AM EDT Procedure Visit [facility] [address] [place] [address] Rip Araujo NP [address] [facility] [place] [address] Alopecia (Primary Dx); Well woman exam with routine gynecological exam; Encounter for screening mammogram for malignant neoplasm of breast Social History Tobacco Use Types Packs/Day Years Used Date Smoking Tobacco: Never Smokeless Tobacco: Current Alcohol Use Standard Drinks/Week Comments Yes 0 (1 standard drink = 0.6 oz pur e alcohol) rarely Comments No Sex and Gender Information Value Date Recorded Sex Assigned at Not on file Legal Sex Female 11:47 PM EDT Gender Identity Not on file Sexual Orientation Not on file documented as of this encounter Last Filed Vital Signs Vital Sign Reading Time Taken Comments Blood Pressure 108/72 05/31/2025 8:29 AM EDT Pulse - - Temperature - - Respiratory Rate - - Oxygen Saturation - - Inhaled Oxygen Concentration - - Weight 98.7 kg (217 lb 8 oz) 05/31/2025 8:29 AM EDT Height - - Body Mass Index 35.11 05/09/2025 3:23 PM EDT documented in this encounter Progress Notes * Rip Araujo NP - 05/31/2025 8:30 AM EDT Reason for Appointment: Patient ID: Rahel Darby is a 44 y.o. female who presents for Well Women Visit Patient presents today for Annual Exam. MEDICATIONS Current Outpatient Medications Medication Instructions ibuprofen 800 mg, Every 8 hours minoxidil (LONITEN) 10 mg, Oral, Daily mupirocin (Bactroban) 2 % ointment 1 Application, 3 times daily phentermine (ADIPEX-P) 37.5 mg, Daily before breakfast TIRZEPATIDE SC Inject under the skin ALLERGIES No Known Allergies PROBLEMS Active Ambulatory Problems Diagnosis Date Noted No Active Ambulatory Problems Resolved Ambulatory Problems Diagnosis Date Noted No Resolved Ambulatory Problems Past Medical History: Diagnosis Date Abnormal uterine bleeding (AUB) Elevated TSH History of abnormal cervical Pap smear HISTORY PAST MEDICAL HISTORY SOCIAL HISTORY Past Medical History: Diagnosis Date Abnormal uterine bleeding (AUB) Elevated TSH History of abnormal cervical Pap smear Social History Tobacco Use Smoking status: Never Smokeless tobacco: Current Vaping Use Vaping status: Every Day Substance Use Topics Alcohol use: Yes Comment: rarely Drug use: Not Currently FAMILY HISTORY Family History Problem Relation Name Age of Onset Hypertension Mother Heart disease Maternal Grandmother Diabetes Paternal Grandmother Stroke Paternal Grandfather SURGICAL HISTORY Past Surgical History: Procedure Laterality Date ENDOMETRIAL ABLATION PAP SMEAR 03/14/2019 negative ROBOTIC ASSISTED HYSTERECTOMY 07/09/2023 robotic assisted with cystoscopy SALPINGECTOMY Bilateral 07/09/2023 TUBAL LIGATION REVIEW OF SYSTEMS Review of Systems: Review of Systems Constitutional: Negative. Hair loss - would like to trial minoxidil HENT: Negative. Eyes: Negative. Respiratory: Negative. Cardiovascular: Negative. Gastrointestinal: Negative. Genitourinary: Negative. Musculoskeletal: Negative. Skin: Negative. Neurological: Negative. All other systems reviewed and are negative. Hematological: Negative. Endocrine: Negative. Allergic/Immunologic: Negative. OBJECTIVE Objective: Physical Exam Constitutional: Appearance: Normal appearance. She is well-developed. Genitourinary: Vulva normal. Vaginal cuff intact. No vaginal prolapse present. No vaginal atrophy present. Breasts: Breasts are soft. Right: Normal. Left: Normal. Cardiovascular: Rate and Rhythm: Normal rate and regular rhythm. Pulmonary: Effort: Pulmonary effort is normal. Breath sounds: Normal breath sounds. Abdominal: General: Bowel sounds are normal. There is no distension. Palpations: Abdomen is soft. Tenderness: There is no abdominal tenderness. There is no guarding or rebound. Musculoskeletal: General: No swelling. Normal range of motion. Right lower leg: No edema. Left lower leg: No edema. Neurological: Mental Status: She is alert and oriented to person, place, and time. Skin: General: Skin is warm and dry. Psychiatric: Mood and Affect: Mood normal. Behavior: Behavior normal. Vitals and nursing note reviewed. Exam conducted with a halftone operator present. Vitals: Estimated body mass index is 35.11 kg/m?? as calculated from the following: Height as of 05/09/25: 5' 6 . Weight as of this encounter: 217 lb 8 oz. BP: 108/72 Patient's last menstrual period was 06/08/2023 (approximate). ASSESSMENT & PLAN ICD-10-CM 1. Alopecia L65.9 minoxidil (Loniten) 10 MG tablet 2. Well woman exam with routine gynecological exam Z01.419 THIN PREP TIS PAP AND HR HPV DNA 3. Encounter for screening mammogram for malignant neoplasm of breast Z12.31 Annual Exam: Patient presents today for an annual exam. Patient states she is doing well and has no complaints. Pap was obtained without difficulty. Patient with complaints of hair loss and would like to trial Minoxidil. Prescription sent to pharmacy. No orders of the defined types were placed in this encounter. Follow Up: Patient is to return in one year for annual unless needed otherwise. Documented by Merline Rubio MA on behalf of: Rip Araujo NP documented in this encounter Miscellaneous Notes * Addendum Note - Rip Araujo NP - 05/31/2025 8:30 AM EDTAddended by: RIP ARAUJO on: 05/31/2025 09:09 AM Modules accepted: Orders documented in this encounter Plan of Treatment Upcoming Encounters Date Type Department Care Team (Late st Contact Info) Description 06/20/2025 3:15 PM EDT Office Visit [facility] [address] [place] [address] James Ibrahim, DPM [address] [place], [place] [id number] 06/05/2026 8:30 AM EDT Procedure Visit [facility] [address] [place] [address] Harlan Taylor DO [address] [facility] [place] [address] Scheduled Orders Name Type Priority Associated Diagnoses Orde r Schedule THIN PREP TIS PAP AND HR HPV DNA Pathology and Cytology Routine Well woman exam with routine gynecological exam Ordered: 05/31/2025 documented as of this encounter Visit Diagnoses Diagnosis Alopecia- Primary Well woman exam with routine gynecological exam Routine gynecological examination Encounter for screening mammogram for malignant neoplasm of breast documented in this encounter Care Teams Behavior Analyst Relationship Specialty Start Date End Date Nicolás Lopez MD [address] [place] [address], 1 [place] [address] PCP - General Family Medicine 03/23/25 documented as of this encounter
--- OUTSIDE RECORDS SUMMARY | 2025-05-31 15:21 | XMS_ITS | Encounter Summary ---
Author Organization [facility] [employer] Address [id number] [address] [place] [address] Care Team Providers Care Wallpaper Consultant Name Role Phone Nicolás Lopez MD Primary Care Provider [phone] Reason for Visit * Reason Comments Med Refill Encounter Details Date Type Department Care Team (Late st Contact Info) Description 07/01/2023 Refill [facility] [address] [place] [address] 1 [place] [id number] Nicolás Lopez MD [address] [place] [address], [address] [place], [place] [id number] Anxiety Social History Tobacco Use Types Packs/Day Years Used Date Smoking Tobacco: Some Days Smokeless Tobacco: Never Alcohol Use Standard Drinks/Week Comments Not Currently 0 (1 standard drink = 0.6 oz pur e alcohol) Overall Financial Resource Strain (CARDIA) Answe r Date Recorded How hard is it for you to pa y for the very basics like food, housing, medical care, and heating? Not very hard 04/07/2023 PHQ-2 Answer Date Recorded Total Score 0 06/15/2023 PRAPARE - Transportation Answer Date Re corded [...] got money to buy more. Never True 04/07/2023 Within the past 12 months th e food we bought just didn't last and we didn't have money to get more. Never True 04/07/2023 Purpose - Life Answer Date Recorded Purpose and direction in life Unknown Comments Unknown Sex and Gender Information Value Date Recorded Sex Assigned at Female 12/10/2018 9:41 AM EDT Legal Sex Female 11:41 AM EDT Gender Identity Female 12/10/2018 9:41 AM EDT Sexual Orientation Straight 12/10/2018 9: 41 AM EDT documented as of this encounter Miscellaneous Notes * Telephone Encounter - Magali Burns CMA - 07/01/2023 1:37 PM EDT Too soon to refill documented in this encounter Plan of Treatment Not on file documented as of this encounter Visit Diagnoses Diagnosis Anxiety Anxiety state, unspecified documented in this encounter Additional Health Concerns Assessment Noted Time PHQ-9 Depression Total Score: 0 06/15/20 23 9:57 AM EDT documented as of this encounter Care Teams Wallpaper Consultant Relationship Specialty Start Date End Date Nicolás Lopez MD [address] [place] [address], 1 [place] [address] PCP - General Pediatrics 11/09/19 documented as of this encounter
--- OUTSIDE RECORDS SUMMARY | 2025-05-31 15:21 | XMS_ITS | Encounter Summary ---
Author Organization [facility] [employer] Address [id number] [address] [place] [address] Care Team Providers Care Health Diagnostics Teacher Name Role Phone Nicolás Lopez MD Primary Care Provider [phone] Encounter Details Date Type Department Care Team (Late st Contact Info) Description 08/12/2023 Orders Only [facility] [address] [facility] [address] [place] [address] External, Scanning Provider Social History Tobacco Use Types Packs/Day Years [...] AM EDT documented as of this encounter Plan of Treatment Not on file documented as of this encounter Procedures Procedure Name Priority Date/Time Associated Diagnosis Comments CT ABDOMEN AND PELVIS W CONT Routine 08/08/2023 documented in this encounter Results * CT abdomen and pelvis with contrast (08/08/2023) Anatomical Region Laterality Modality Body, Abdomen, Body Covera N/A Compu von Tomography 08/08/2023 us Scanning Provider External IMG CT ORDERABLES Fin al Result documented in this encounter Visit Diagnoses Not on filedocumented in this encounter Additional Health Concerns Assessment Noted Time PHQ-9 Depression Total Score: 0 06/15/20 23 9:57 AM EDT documented as of this encounter Care Teams Health Diagnostics Teacher Relationship Specialty Start Date End Date Nicolás Lopez MD [address] [place] [address], [address] [place] [address] PCP - General Pediatrics 11/09/19 documented as of this encounter
--- OUTSIDE RECORDS SUMMARY | 2025-05-31 15:21 | XMS_ITS | Encounter Summary ---
Author Organization [facility] Address [address] [place] [address] Care Team Providers Care Equal Opportunity Officer Name Role Phone Nicolás Lopez MD Primary Care Provider [phone] Encounter Details Date Type Department Care Team (Late Contact Info) Description 05/31/2025 Bamboo flowsheet [facility] [address] [place] [address] Joy Araujo, UX DEVELOPER DESIGNER [address] [facility] [place] [address] Social History Tobacco Use Types Packs/Day Years [...] on file documented as of this encounter Plan of Treatment Upcoming Encounters Date Type Department Care Team (Late Contact Info) Description 06/20/2025 3:15 PM EDT Office Visit [facility] [address] [place] [id number] James Ibrahim DPM [address] [place], [place] [id number] 06/05/2026 8:30 AM EDT Procedure Visit [facility] [address] [facility] [place] [place] [address] Harlan Taylor, DO [address] [place] [address] [place] [address] documented as of this encounter Visit Diagnoses Not on filedocumented in this encounter Care Teams Equal Opportunity Officer Relationship Specialty Start Date End Date Nicolás Lopez MD [address] [place] [address], [address] [place] [address] PCP - General Family Medicine 03/23/25 documented as of this encounter
--- OUTSIDE RECORDS SUMMARY | 2025-05-31 15:22 | XMS_ITS | Clinical Summary ---
Author Organization [facility] Address [address] [place] [address] Care Team Providers Care Softball Winder Name Role Phone Nicolás Lopez MD Primary Care Provider [phone] Allergies No known active allergies Medications ibuprofen 800 MG tablet Take 800 mg by mouth every 8 (eight) hours 07/09/20 23 Active phentermine (Adipex-P) 37.5 MG tablet Take 37.5 mg by mouth in the morning. Take before meals. Active TIRZEPATIDE SC Inject under the skin Active mupirocin (Bactroban) 2 % ointment Apply 1 Application topically in the morning and 1 Application at noon and 1 Application in the evening. 05/19/20 25 Active minoxidil (Loniten) 10 MG tabletIndicat ions:Alopecia Take 0.5 tablets (5 mg) by mouth Daily 15 tablet 05/31/20 25 026 Active predniSONE (Deltasone) 10 MG tabletIndicat ions:Peroneal tendinitis of left lower extremity,Sin us tarsi syndrome of left foot Take twice daily for 5 days, then take once daily for 5 days. 15 tablet 04/04/20 25 025 Discontinued minoxidil (Loniten) 10 MG tabletIndicat ions:Alopecia Take 1 tablet (10 mg) by mouth Daily 30 tablet 05/31/20 25 025 Discontinued(Do se adjustment) Encounters Date Type Department Care Team Description 05/31/2025 8:30 AM EDT Procedure Visit [facility] [address] [facility] [address] Joy Araujo NP Alopecia (Primary Dx); Well woman exam with routine gynecological exam; Encounter for screening mammogram for malignant neoplasm of breast 05/31/2025 Bamboo flowsheet [facility] [address] [facility] [address] Joy Araujo, AMARI 05/09/2025 3:15 PM EDT Office Visit [facility] [address] [place] [address] James Ibrahim DPM Peroneal tendinitis of left lower extremity (Primary Dx); Sinus tarsi syndrome of left foot; Varus deformity, not elsewhere classified, left ankle 05/09/2025 Bamboo flowsheet [facility] [address] [place] [address] James Ibrahim DPM 05/09/2025 Travel 05/05/2025 Clinisync Result Encounter [facility] External Department Unsolicited Thang Taylor DO 04/19/2025 Telephone [facility] [address] [facility] [address] Sarika Foreman LPN 04/04/2025 3:05 PM EDT Ancillary Procedure [facility] [address] [place] [address] 04/04/2025 2:30 PM EDT Office Visit [facility] [address] [place] [address] James Ibrahim DPM Peroneal tendinitis of left lower extremity (Primary Dx); Sinus tarsi syndrome of left foot; Instability of left ankle joint; Difficulty walking; Varus deformity, not elsewhere classified, left ankle 04/04/2025 Bamboo flowsheet [facility] [address] [place] [address] James Ibrahim DPM 04/04/2025 Travel 04/03/2025 Travel from Last 3 Months Family History Medical History Relation Name Comments Heart disease Maternal Grandmother Hypertension Mother Stroke Paternal Grandfather Diabetes Paternal Grandmother Relation Name Status Comments Maternal Grandmother Mother Paternal Grandfather Paternal Grandmother Social History Tobacco Use Types Packs/Day Years Used Date Smoking Tobacco: Never Smokeless Tobacco: Current Tobacco Cessation:Ready to Q uit: Not Asked; Counseling Given: Not Answered Alcohol Use Standard Drinks/Week Comments Yes 0 (1 standard drink = 0.6 oz pur e alcohol) rarely Comments No Sex and Gender Information Value Date Recorded Sex Assigned at Not on file Legal Sex Female 11:47 PM EDT Gender Identity Not on file Sexual Orientation Not on file Last Filed Vital Signs Vital Sign Reading Time Taken Comments Blood Pressure 108/72 05/31/2025 8:29 AM EDT Pulse - - Temperature - - Respiratory Rate - - Oxygen Saturation - - Inhaled Oxygen Concentration - - Weight 98.7 kg (217 lb 8 oz) 05/31/2025 8:29 AM EDT Height 167.6 cm (5' 6 ) 05/09/2025 3:23 PM EDT Body Mass Index 35.11 05/09/2025 3:23 PM EDT Plan of Treatment Upcoming Encounters Date Type Department Care Team (Late st Contact Info) Description 06/20/2025 3:15 PM EDT Office Visit [facility] [address] [place] [id number] James Ibrahim, DPM [address] [place] [address] 06/05/2026 8:30 AM EDT Procedure Visit [facility] [address] [facility] [address] Thang Taylor DO [address] [facility] [place] [address] Health Maintenance Due Date Last Done Comments Influenza Vaccine (#1) 2025 2, 07/27/2021, 06/27/2020, Additional history exists Mammogram 05/05/2026 05/05/2025 Cervical Cancer Screening 04/07/2028 Pap Smear 04/07/2028 04/07/2023 HPV/Cotest 04/17/2028 04/17/2023 Procedures Procedure Name Priority Date/Time Associated Diagnosis Comments MM TOMOSYNTHESIS SCREENING BI 05/05/2025 3:37 PM EDT XR FOOT 3+ VIEWS LEFT Routine 04/04/2025 3:01 PM EDT Peroneal tendinitis of left lower extremity 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, not elsewhere classified, left ankle THINPREP PAP AND HPV MRNA E6/E7 W/RFL HPV 16,18/45 Routine 04/17/2023 12:16 PM EDT Breast cancer screening by mammogram PAP SMEAR Routine 04/07/2023 12:00 AM EDT from Last 3 Months or Most Recently Relevant to Health Maintenance Results * MM TOMOSYNTHESIS SCREENING BI (05/05/2025 3:37 PM EDT) Anatomical Region Laterality Modality Other 05/05/2025 3:37 PM EDT Narrative 05/05/2025 3:38 [place] [address] Mammography Report Signed Patient: RAHEL GREENWOOD MR#: [id number] : 1980 Acct:[id number] Age/Sex: 44 / F ADM Date: 05/05/25 Loc: MAMMO Attending Dr: Thang Taylor D.O. Ordering Physician: Thnag Taylor D.O. Results: Date of Service: 05/05/25 Follow Up: Procedure(s): MM tomosynthesis screening BI Accession Number(s): [id number] cc: Thang Taylor D.O.; Physician,Non-Staff MLeonor Patient Name: RAHEL GREENWOOD MR#: [id number] : 1980 Exam Date: 05/05/2025 Ordering Doctor: DR THANG TAYLOR . RADIOLOGY REPORT PROCEDURE: MM TOMOSYNTHESIS SCREENING BI COMPARISON: MM TOMOSYNTHESIS SCREENING BI, 04/10/2023. INDICATIONS: Screening Calculator Name NCI Breast Cancer Risk Assessment Tool 5 Year Breast Cancer Risk 0.50% Lifetime Breast Cancer Risk 7.20% Personal Breast Cancer No Personal Ovarian Cancer No Treatments None Family Cancers None LOCATION: [facility] BREAST COMPOSITION: There are scattered areas of fibroglandular density. FINDINGS: DIAGNOSTIC CATEGORY 1--NEGATIVE. RIGHT BREAST: No significant suspicious finding. LEFT BREAST: No significant suspicious finding. RECOMMENDATIONS: ROUTINE MAMMOGRAM AND CLINICAL EVALUATION IN 12 MONTHS. Dictated by: Zhao Grossman DO on 05/05/2025 at 15:36 Approved by: Zhao Grossman DO on 05/05/2025 at 15:37 Dictated By: Zhao Grossman M.D. Signed By: 05/05/25 1538 DD/ 1537 TD/TT: Swatch Checker: Procedure Note Radiology, Radiologist, MD - 05/05/2025 [place] [address] Mammography Report Signed Patient: RAHEL GREENWOOD KMR#: [id number] : 1980Acct:[id number] Age/Sex: 44 / FADM Date: 05/05/25 Loc: MAMMO Attending Dr: Thang Taylor D.O. Ordering Physician: Thang Taylor D.O.Results: Date of Service: 05/05/25Follow Up: Procedure(s): MM tomosynthesis screening BI Accession Number(s): [id number] cc: Thang Taylor D.O.; Physician,Non-Staff Vinh Patient Name: RAHEL GREENWOOD MR#: [id number] : 1980 Exam Date: 05/05/2025 Ordering Doctor: DR THANG TAYLOR . RADIOLOGY REPORT PROCEDURE: MM TOMOSYNTHESIS SCREENING BI COMPARISON: MM TOMOSYNTHESIS SCREENING BI, 04/10/2023. INDICATIONS: Screening Calculator Name NCI Breast Cancer Risk Assessment Tool 5 Year Breast Cancer Risk 0.50% Lifetime Breast Cancer Risk 7.20% Personal Breast Cancer No Personal Ovarian Cancer No Treatments None Family Cancers None LOCATION: [facility] BREAST COMPOSITION: There are scattered areas of fibroglandulardensity. FINDINGS: DIAGNOSTIC CATEGORY 1--NEGATIVE. RIGHT BREAST: No significant suspicious finding. LEFT BREAST: No significant suspicious finding. RECOMMENDATIONS: ROUTINE MAMMOGRAM AND CLINICAL EVALUATION IN 12 MONTHS. Dictated by: Zhao Grossman DO on 05/05/2025 at 15:36 Approved by: Zhao Grossman DO on 05/05/2025 at 15:37 Dictated By: Zhao Grossman M.D. Signed By:05/05/25 1538 DD/ 1537 TD/TT: Swatch Checker: Thang Taylor DO [facility] Final Result * XR foot 3+ views left (04/04/2025 3:01 PM EDT) Anatomical Region Laterality Modality Lower Extremities, Foot Left Radiogra phic Imaging Narrative 04/04/2025 4:47 PM EDT Imaging Result: AP, medial oblique, lateral views are weight-bearing. Significantly increased calcaneal inclination and decreased talar declination. Bullet hole sinus tarsi. Stacking of the metatarsals noted on the AP view. Slight metatarsus adductus. No fractures or dislocations noted. James Ibrahim DPM IMG XR PROCEDURES Final Res ult * THINPREP PAP AND HPV MRNA E6/E7 W/RFL HPV 16,18/45 (04/17/2023 12:16 PM EDT) Thang Taylor DO LAB BLOOD ORDERABLES Final Resul t EXTERNAL LAB * Pap Smear (04/07/2023 12:00 AM EDT) Swab Cervical swab / Unknown Historical Provider LAB CYTOLOGY ORDERABLES F inal Result EXTERNAL LAB from Last 3 Months or Most Recently Relevant to Health Maintenance Insurance [employer] Care Teams Softball Winder Relationship Specialty Start Date End Date Nicolás Lopez MD [address] [place] [address], 1 [place], [place] [id number] PCP - General Family Medicine 03/23/25
--- OUTSIDE RECORDS SUMMARY | 2025-05-31 15:22 | XMS_ITS | Encounter Summary ---
Author Organization [facility] [employer] [facility] tem Address [id number] [address] [place] [address] Care Team Providers Care Senior Billing Consultant Name Role Phone Nicolás Lopez MD Primary Care Provider [phone] Encounter Details Date Type Department Care Team (Late st Contact Info) Description 08/16/2021 Orders Only [facility] [address] [place] [address] External, Scanning Provider Social History Tobacco Use Types Packs/Day Years Used Date Smoking Tobacco: Some Days Smokeless Tobacco: Never Alcohol Use Standard Drinks/Week Comments Not Currently 0 (1 standard drink = 0.6 oz pur e alcohol) PHQ-2 Answer Date Recorded Total Score 0 04/25/2020 Childcare Answer Date Recorded Childcare Unknown 02/16/2019 Employment Answer Date Recorded Employment Unknown 02/16/2019 Purpose - Life Answer Date Recorded Purpose [...] Procedure Name Priority Date/Time Associated Diagnosis Comments SARS COV 2 (COVID-19) STAT 08/15/2021 documented in this encounter Results * SARS COV 2 (COVID-19) (08/15/2021) EXTERNAL SARS COV 2 Negative Negative MANUALLY TRANSCRIBED RESULTS Comment:result in urgent car e encounter NASOPHARYNGEAL 08/15/2021 us Scanning Provider External MICROBIOLOGY - GENERA L ORDERABLES Final Result MANUALLY TRANSCRIBED RESULTS documented in this encounter Visit Diagnoses Not on filedocumented in this encounter Additional Health Concerns Infection Onset Date Last Indicated Resolved Time Enteric Rule-Out 01/07/2023 01/07/2023 01/07/2023 11:06 PM EDT Assessment Noted Time PHQ-9 Depression Total Score: 0 04/25/20 20 4:29 PM EDT documented as of this encounter Care Teams Senior Billing Consultant Relationship Specialty Start Date End Date Nicolás Lopez MD [address] [place] [address], [address] [place] [address] PCP - General Pediatrics 11/09/19 documented as of this encounter
--- OUTSIDE RECORDS SUMMARY | 2025-05-31 15:22 | XMS_ITS | Clinical Summary ---
Author Organization [facility] tem Address [id number] [address] [place] [address] Care Team Providers Care Plugman Name Role Phone Nicolás Lopez MD Primary Care Provider [phone] Allergies No known active allergies Medications phentermine (ADIPEX-P) 37.5 mg tabletIndicatio ns:Class 3 severe obesity due to excess calories without serious comorbidity with body mass index (BMI) of 45.0 to 49.9 in adult ([facility]) Take 1 tablet (37.5 mg total) by mouth every morning before breakfast. 30 tablet 2 5 Active mupirocin (BACTROBAN) 2 % ointmentIndicat ions:Impetigo Apply 1 Application topically 3 (three) times a day. 22 g 5 Active clindamycin (CLEOCIN) 300 mg capsuleIndicati ons:Paronychia of finger of left hand Take 1 capsule (300 mg total) by mouth 3 (three) times a day for 7 days. 21 capsule 5 05/26/20 25 Active Problems No known active problems Encounters Date Type Department Care Team Description 05/19/2025 10:15 AM EDT Office Visit [facility] [address] [facility] [address] [place] [address] Nicolás Lopez MD Paronychia of finger of left hand (Primary Dx); Impetigo 05/19/2025 Travel 03/21/2025 3:30 PM EDT Office Visit [facility] [address] [place] [address] Nicolás Lopez MD Paresthesia of left foot (Primary Dx); Class 3 severe obesity due to excess calories without serious comorbidity with body mass index (BMI) of 45.0 to 49.9 in adult ([facility]) 03/21/2025 Travel from Last 3 Months Immunizations Immunization Administration Dates Next Due COVID-19, mRNA, LNP-S, PF, 1 00mcg/0.5mL Dose 01/03/2021,12/06/2020 Influenza, Injectable, Mdck, Preservative Free, Quad 07/27/2021 Influenza, Injectable, Quadrivalent 09/23/2017 Influenza, Injectable, quadrivalent (PF) 022,06/18/2019 Influenza, Unspecified 06/27/2020,07/04/2016, Tdap 02/01/2016,09/30/2010 Family History Relation Name Status Comments Father Alive Mother Alive Social History Tobacco Use Types Packs/Day Years Used Date Smoking Tobacco: Former Cigarettes Smokeless Tobacco: Never Tobacco Cessation:Counseling Given: No Alcohol Use Standard Drinks/Week Comments Not Currently [...] Orientation Straight 12/10/2018 9: 41 AM EDT Last Filed Vital Signs Vital Sign Reading Time Taken Comments Blood Pressure 118/67 05/19/2025 10:13 AM EDT Pulse 90 05/19/2025 10:13 AM EDT Temperature 36.7 C (98 F) 03/21/2025 3:17 PM EDT Respiratory Rate - - Oxygen Saturation 98% 03/21/2025 3:17 PM EDT Inhaled Oxygen Concentration - - Weight 98.3 kg (216 lb 12.8 oz) 025 10:13 AM EDT Height 165.1 cm (5' 5 ) 05/19/2025 10:1 3 AM EDT Body Mass Index 36.08 05/19/2025 10:13 AM EDT Plan of Treatment Health Maintenance Due Date Last Done Comments Adult BMI Follow Up Plan 2000 COVID-19 Vaccine (2024-2 6 season) 2025 07/27/2021, 01/03/2021, 12/06/2020 Influenza Vaccine 05/08/2025 05/08/2022, , 06/27/2020, Additional history exists DTaP,Tdap and Td Vaccines (3 - Td or Tdap) 01/31/2026 02/01/2016, 09/30/2010 Depression Screening 03/21/2026 03/21/2025 Pap Smear 04/07/2026 04/07/2023 Adult BMI Screening 05/19/2026 05/19/2025 Tobacco Screening 05/19/2026 05/19/2025 Medical Devices Not on file Insurance [employer] Care Teams Plugman Relationship Specialty Start Date End Date Nicolás Lopez MD [address] [place] [address], [address] [place] [address] PCP - General Pediatrics 11/09/19
--- OUTSIDE RECORDS SUMMARY | 2025-05-31 15:22 | XMS_ITS | Encounter Summary ---
Author Organization [facility] Address [id number] [address] [place] [address] Care Team Providers Care Cardboard Inserter Name Role Phone Nicolás Lopez MD Primary Care Provider [phone] Reason for Visit * Reason Comments Med Refill Encounter Details Date Type Department Care Team (Late st Contact Info) Description 06/14/2023 Refill [facility] [address] [place] [address] 1 [place] [address] Nicolás Lopez MD [address] [place] [address], [address] [place], [place] [id number] Anxiety Social History Tobacco Use Types Packs/Day [...] Noted Time PHQ-9 Depression Total Score: 0 04/09/20 23 8:26 AM EDT documented as of this encounter Care Teams Cardboard Inserter Relationship Specialty Start Date End Date Nicolás Lopez MD [address] [place] [address], [address] [place] [id number] PCP - General Pediatrics 11/09/19 documented as of this encounter
--- OUTSIDE RECORDS SUMMARY | 2025-05-31 15:22 | XMS_ITS | Encounter Summary ---
Author Organization [facility] tem Address [id number] [address] [place] [address] Care Team Providers Care Court Usher Name Role Phone Nicolás Lopez MD Primary Care Provider [phone] Encounter Details Date Type Department Care Team (Latest Contact Info) Description 05/19/2025 Travel Social History Tobacco Use Types Packs/Day Years [...] documented as of this encounter Care Teams Court Usher Relationship Specialty Start Date End Date Nicolás Lopez MD [address] [place] [address], [address] [place] [address] PCP - General Pediatrics 11/09/19 documented as of this encounter
--- OUTSIDE RECORDS SUMMARY | 2025-05-31 15:22 | XMS_ITS | Encounter Summary ---
Author Organization [facility] Address [address] [facility] [place] [address] Care Team Providers Care Rib Cutter Name Role Phone Nicolás Lopez MD Primary Care Provider [phone] Encounter Details Date Type Department Care Team (Late st Contact Info) Description 06/25/2023 Clinisync Result Encounter [facility] Unsolicited Thang Taylor, DO [address], [place] [id number] Social History Tobacco Use Types Packs/Day Years Used Date Smoking Tobacco: Never Assessed Comments No Sex and Gender Information Value Date Recorded Sex Assigned at Not on file Legal Sex Female 11:47 PM EDT Gender Identity Not on file Sexual Orientation Not on file documented as of this encounter Plan of Treatment Upcoming Encounters Date Type Department Care Team (Late st Contact Info) Description 06/20/2025 3:15 PM EDT [facility] [address] [place] [phone] James Ibrahim, DPRaven [address] [place] [address] 06/05/2026 8:30 AM EDT Procedure Visit [facility] [address] [place] [phone] Thang Taylor DO [address] [place] [address] documented as of this encounter Procedures Procedure Name Priority Date/Time Associated Diagnosis Comments XR CHEST 2V 06/25/2023 10:12 AM EDT [facility] PROTHROMBIN TIME INR W/O COUM Routine 06/25/2023 9:50 AM EDT [facility] LIVER PANEL Routine 06/25/2023 9:50 AM EDT [facility] APTT Routine 06/25/2023 9:50 AM EDT ALL BASIC METABOLIC PANEL Routine 06/25/2023 9:50 AM EDT documented in this encounter Results * XR CHEST 2V (06/25/2023 10:12 AM EDT) Anatomical Region Laterality Modality Other 06/25/2023 10:1 2 AM EDT Narrative 06/25/2023 10:12 [place] [address] XRay Report Signed Patient: RAHEL DARBY MR#: [id number] : 1980 Acct:[id number] Age/Sex: 42 / F ADM Date: 06/25/23 Loc: [facility] Attending Dr: Thang Taylor D.O. Ordering Physician: Thang Taylor D.O. Date of Service: 06/25/23 Procedure(s): XR chest 2V Accession Number(s): [id number] cc: Thang Taylor D.O.; Physician,Non-Staff M.DChe[place] The [address] [id number] Patient Name: RAHEL DARBY MRN: [id number] date: 1980 Sex: F Assigned Patient Location: [facility] Current Patient Location: [facility] Accession/Order Number: [id number] Exam Date: 06/25/2023 09:48 Report Date: 06/25/2023 10:12 At the request of: THANG TAYLOR Procedure: XR chest 2V EXAM: XR chest 2V HISTORY: Preop exam COMPARISON: None. TECHNIQUE: PA and lateral views of the chest. FINDINGS: The cardiomediastinal silhouette is normal. No focal consolidation is identified. There is no pneumothorax. No pleural effusion is noted. The osseous structures are intact. XR/XR chest 2V IMPRESSION: No acute cardiopulmonary process. Electronically authenticated by: JULES PERKINS Date: 06/25/2023 10:12 Dictated By: Jules Perkins M.D. Signed By: 06/25/23 1015 DD/ 1012 TD/TT: Training Engineer: Procedure Note Radiology, Radiologist, MD - 06/25/2023 [place] [address] XRay Report Signed Patient: RAHEL DARBY KMR#: [id number] : 1980Acct:[id number] Age/Sex: 42 / FADM Date: 06/25/23 Loc: [facility] Attending Dr: Thang Taylor D.O. Ordering Physician: Thang Taylor D.O. Date of Service: 06/25/23 Procedure(s): XR chest 2V Accession Number(s): [id number] cc: Thang Taylor D.O.; Physician,Non-Staff [place] [facility] [place] [address] Patient Name: RAHEL DARBY MRN: [facility]:[id number] date: 1980 Sex: F Assigned Patient Location: [facility] Current Patient Location: [facility] Accession/Order Number: [id number] Exam Date: 06/25/2023 09:48 Report Date: 06/25/2023 10:12 At the request of: THANG TAYLOR Procedure: XR chest 2V EXAM: XR chest 2V HISTORY: Preop exam COMPARISON: None. TECHNIQUE: PA and lateral views of the chest. FINDINGS: The cardiomediastinal silhouette is normal. No focal consolidation is identified. There is no pneumothorax. No pleural effusion is noted. The osseous structures are intact. XR/XR chest 2V IMPRESSION: No acute cardiopulmonary process. Electronically authenticated by: JULES PERKINS Date: 06/25/2023 10:12 Dictated By: Jules Perkins M.D. Signed By:06/25/23 1015 DD/ 1012 TD/TT: Training Engineer: Thang Brandon DO [facility] Final Result * (ABNORMAL) ALL BASIC METABOLIC PANEL (06/25/2023 9:50 AM EDT) SODIUM 132(L) 136 - 145 mmol/L [facility] POTASSIUM 4.0 3.5 - 5.1 mmol/L [facility] CHLORIDE 99 98 - 107 mmol/L [facility] CARBON DIOXIDE 26.1 21.0 - 32.0 mmol/L [facility] ANION GAP 10.9 [facility] GLUCOSE 86 74 - 106 mg/dL [facility] BLOOD UREA NITROGEN 13.0 7.0 - 18.0 mg/dL [facility] CREATININE 0.69 0.55 - 1.02 mg/dL [facility] EGFR-AF ANGOLAN >60 >=60 TBH TBH EGFR-NON AF ANGOLAN >60 >=60 [facility] BUN CREATININE RATIO 18.8 [facility] CALCIUM 8.6 8.5 - 10.1 mg/dL [facility] 06/25/2023 9:50 AM EDT 06/25/2023 10:11 AM EDT Narrative [facility] - 06/25/2023 11:18 AM EDT Thang Brandon DO [facility] Final Result [facility] LIVER PANEL (06/25/2023 9:50 AM EDT) BILIRUBIN TOTAL 0.3 0.2 - 1.0 mg/dL [facility] BILIRUBIN DIRECT <0.1 0.0 - 0.2 mg/dL [facility] ASPARTATE AMINO TRANSFERASE 20 15 - 37 U/L [facility] ALANINE AMINOTRANSFERASE 47 14 - 59 U/L [facility] ALKALINE PHOSPHATASE 73 46 - 116 U/L [facility] TOTAL PROTEIN 7.0 6.4 - 8.2 g/dL [facility] ALBUMIN LEVEL 3.6 3.4 - 5.0 g/dL [facility] GLOBULIN 3.4 g/dL [facility] ALBUMIN GLOBULIN RATIO 1.1 [facility] 06/25/2023 9:50 AM EDT 06/25/2023 10:11 AM EDT Narrative [facility] - 06/25/2023 11:18 AM EDT us Thang Brandon DO [facility] Final Result [facility] TB * [facility] APTT (06/25/2023 9:50 AM EDT) PARTIAL THROMBOPLASTIN TIME 29.4 22.3 - 36.2 sec TB 06/25/2023 9:50 AM EDT 06/25/2023 10:11 AM EDT Narrative [facility] - 06/25/2023 11:16 AM EDT us Thang Brandon DO [facility] Final Result [facility] * [facility] PROTHROMBIN TIME INR W/O COUM (06/25/2023 9:50 AM EDT) PROTHROMBIN TIME 10.1 9.0 - 11.6 sec TBH TBH INR 0.95 [facility] Comment: DESIRED INR: 2.0-3.0 CONDITIONS NOT LISTED BELOW 2.5-3.5 FOR PROSTHETIC HEART VALVE REPLACEMENT 2.5-3.5 RECURRENT THROMBOSIS 06/25/2023 9:50 AM EDT 06/25/2023 10:11 AM EDT Narrative [facility] - 06/25/2023 11:16 AM EDT us Thang Brandon DO [facility] Final Result [facility] documented in this encounter Visit Diagnoses Not on filedocumented in this encounter Care Teams Rib Cutter Relationship Specialty Start Date End Date Nicolás Lopez MD [address] [place] [address], [address] [place] [address] PCP - General Family Medicine 03/23/25 documented as of this encounter
--- OUTSIDE RECORDS SUMMARY | 2025-05-31 15:23 | XMS_ITS | CCD ---
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 Name Role Phone BRANDON, DR DESIR Admitting Unavailable BRANDON, DR DESIR Attending Unavailable BRANDON, DR DESIR Admitting Unavailable BRANDON, DR DESIR Attending Unavailable BRANDON, DR DESIR Consulting Unavailable BRANDON, DR DESIR Admitting Unavailable BRANDON, DR DESIR Attending Unavailable BRANDON, DR DESIR Consulting Unavailable Policaro, Inna Consulting Unavailable BRANDON, DR DESIR Admitting Unavailable BRANDON, DR DESIR Attending Unavailable BRANDON, DR DESIR Primary Care Unavailable BRANDON, DR DESIR Consulting Unavailable BRANDON, DR DESIR Admitting Unavailable BRANDON, DR DESIR Attending Unavailable BRANDON, DR DESIR Admitting Unavailable BRANDON, DR DESIR Attending Unavailable BRANDON, DR DESIR Primary Care Unavailable BRANDON, DR DESIR Consulting Unavailable CHRISTOPHER, CLARIBEL Consulting Unavailable Ginty, Nuria Unavailable Sarina Rg MD Primary Care Provider Sarina Rg MD Primary Care Provider Sarina Rg MD Primary Care Provider [phone] MANISHA IBRAHIM Attending Unavailable SARINA RG Referring Unavailable MANISHA IBRAHIM Referring Unavailable MANISHA IBRAHIM Attending Unavailable SARINA RG Attending Unavailable SARINA RG Referring Unavailable SARINA RG Primary Care Unavailable SARINA RG Attending Unavailable SARINA RG Referring Unavailable SARINA RG Primary Care Unavailable SARINA RG Attending Unavailable SARINA RG Referring Unavailable SARINA RG Primary Care Unavailable Medications Current Medications Medication Drug Class(es) Dates Sig (Normalized) Sig (Original) clindamycin 300 mg oral capsule (1 source) Lincosamide Antibacterial Start: 05-19-2025 End: 05-26-2025 take 1 capsule by mouth three times daily clindamycin (CLEOCIN) 300 mg capsule Indications: Paronychia of finger of left hand Take 1 capsule (300 mg total) by mouth 3 (three) times a day for 7 days. 21 capsule 05/19/2025 05/26/2025 Active dextromethorphan hydrobromide 15 mg / guaiFENesin 400 mg / pseudoephedrine hydrochloride 60 mg oral tablet (1 source) alpha-Adrenergic Agonist, Uncompetitive U-xqlwuf-E-aspartate Receptor Antagonist, Sigma-1 Agonist Start: 08-15-2021 take [...] Aug, Active ibuprofen 800 mg oral tablet (10 sources) Nonsteroidal Anti-inflammatory Drug Start: 07-09-2023 End: [...] 21 days 21 tablet 04/04/2025 04/25/2025 Active minoxidil 10 mg oral tablet (1 source) Arteriolar Vasodilator Start: 05-31-2025 End: 05-31-2026 take 1 tablet by mouth once daily minoxidil (Loniten) 10 MG tablet Indications: Alopecia Take 1 tablet (10 mg) by mouth Daily 30 tablet 11 05/31/2025 05/31/2026 Active mupirocin 0.02 mg/mg topical ointment (2 sources) RNA Synthetase Inhibitor Antibacterial Start: 05-19-2025 mupirocin (Bactroban) 2 % ointment Apply 1 Application topically in the morning and 1 Application at noon and 1 Application in the evening. 05/19/2025 Active phentermine hydrochloride 37.5 mg oral tablet (12 sources) Sympathomimetic Amine Anorectic Start: 08-01-2024 End: 03-21-2025 take 45-49.9 tablets by mouth once daily before breakfast phentermine (ADIPEX-P) 37.5 mg tablet Indications: Class 3 severe obesity due to excess calories without serious comorbidity with body mass index (BMI) of 45.0 to 49.9 in adult ([facility]) Take 1 tablet (37.5 mg total) by mouth every morning before breakfast. 30 tablet 2 03/21/2025 Active predniSONE 10 mg oral tablet (8 sources) Start: 04-04-2025 End: 05-31-2025 predniSONE (Deltasone) 10 MG tablet Indications: Peroneal tendinitis of left lower extremity , Sinus tarsi syndrome of left foot Take twice daily for 5 days, then take once daily for 5 days. 15 tablet 04/04/2025 05/31/2025 Discontinued TIRZEPATIDE SC (8 sources) TIRZEPATIDE SC Inject under the skin [...] (BMI) of 45.0 to 49.9 in adult ([facility]) Inject 2.5 mg under the skin every 7 days. 2 mL 07/15/2024 08/01/2024 Discontinued Start: 07-15-2024 tirzepatide, w eight loss, 2.5 mg/0.5 mL pen injector Indications: Class 3 severe obesity due to excess calories without serious comorbidity with body mass index (BMI) of 45.0 to 49.9 in adult ([facility]) Inject 2.5 mg under the skin every 7 days. 2 mL 07/15/2024 Active Problems Active Problems Problem Classification Problem Date Documented Date Episodic/Chronic Acquired foot deformities (4 sources) Ankle joint deformity; Translations: [Varus deformity, not elsewhere classified, left ankle] 04-04-2025 Episodic Contraceptive and procreative management (1 source) Encounter for removal of intrauterine contraceptive device; Translations: [ENC REMOVAL IU CONTRACEPT DEVICE] Onset: 03-13-2021 Episodic Menstrual disorders (4 sources) Excessive and frequent menstruation with regular cycle; Translations: [EXCESS FREQ MENSTRUATION W/REG CYCL] Onset: 02-22-2021 Chronic Other connective tissue disease (4 sources) Peroneal tendinitis of left lower limb; Translations: [Peroneal tendinitis, left leg] 04-04-2025 Episodic Other connective tissue disease (1 source) Hand pain Onset: 05-19-2025 Episodic Other connective tissue disease (1 source) Pain in lower limb Onset: 03-21-2025 Episodic Other connective tissue disease (1 source) Foot pain Onset: 03-21-2025 Episodic Other nervous system disorders (2 sources) Difficulty walking; Translations: [Difficulty in walking, not elsewhere classified] 04-04-2025 Chronic Other nervous system disorders (2 sources) Paresthesia of foot ; Translations: [Paresthesia of skin] 03-22-2025 Episodic Other nervous system disorders (1 source) Paresthesia of skin; Translations: [Paresthesia of skin] Onset: 03-21-2025 Episodic Other non-traumatic joint disorders (4 sources) Sinus tarsi syndrome of left ankle; [...] (BMI) of 45.0 to 49.9 in adult ([facility])] 07-15-2024 Chronic Other nutritional; endocrine; and metabolic disorders (1 source) Body mass index (BMI) 45.0-49.9, adult; Translations: [Body mass index (BMI) 45.0-49.9, adult] Onset: 07-15-2024 Chronic Other nutritional; endocrine; and metabolic disorders (1 source) Morbid (severe) obesity due to excess calories; Translations: [Morbid (severe) obesity due to excess calories] Onset: 07-15-2024 Chronic Other screening for suspected conditions (not mental disorders or infectious disease) (5 sources) Encounter for screening for malignant neoplasm of cervix; Translations: [Patient encounter status] Onset: 01-30-2021 Episodic Other skin disorders (1 source) Alopecia; Translations: [Nonscarring hair loss, unspecified] 05-31-2025 Episodic Skin and subcutaneous tissue infections (4 sources) Paronychia of finger of left hand; Translations: [Cellulitis of left finger] Onset: 05-19-2025 05-19-2025 Episodic Substance-related disorders (1 source) Nicotine dependence, cigarettes, uncomplicated; Translations: [NICOTINE DEPEND CIGARETTES UNCOMP] Onset: 03-13-2021 Chronic Unclassified (1 source) CONTACT W/AND (SUSP) EXPOS COVID-19; Translations: [CONTACT W/AND (SUSP) EXPOS COVID-19] Onset: 02-21-2021 Unclassified (1 source) Hair/Scalp Problem Onset: 05-19-2025 Unclassified (1 source) Obesity, class 3; Translations: [...] Onset: 02-07-2021 Resolved: 08-15-2021 Episodic Mood disorders (4 sources) Mood disorders Onset: 06-15-2023 Resolved: 03-21-2025 06-15-2023 Other upper respiratory infections (1 source) Acute upper respiratory infection, unspecified Onset: 08-15-2021 Resolved: 08-15-2021 Episodic Results Test Name Value Interpretation Reference Range Facility MM TOMOSYNTHESIS SCREENING B Ion 05-05-2025 [place] [address] Mammography Report Signed Patient: RAHEL DARBY MR#: [id number] : 1980 Acct:[id number] Age/Sex: 44 / F ADM Date: 05/05/25 Loc: MAMMO Attending Dr: Thang Taylor D.O. Ordering Physician: Thang Taylor D.O. Results: Date of Service: 05/05/25 Follow Up: Procedure(s): MM tomosynthesis screening BI Accession Number(s): [id number] cc: Thang Taylor D.O.; Physician,Non-Staff Vinh Patient Name: RAHEL DARBY MR#: [id number] : 1980 Exam Date: 05/05/2025 Ordering Doctor: DR THANG TAYLOR . RADIOLOGY REPORT PROCEDURE: MM TOMOSYNTHESIS SCREENING BI COMPARISON: MM TOMOSYNTHESIS SCREENING BI, 04/10/2023. INDICATIONS: Screening Calculator Name NCI Breast Cancer Risk Assessment Tool 5 Year Breast Cancer Risk 0.50% Lifetime Breast Cancer Risk 7.20% Personal Breast Cancer No Personal Ovarian Cancer No Treatments None Family Cancers None LOCATION: The [facility] BREAST COMPOSITION: There are scattered areas [...] Signed By: 05/05/25 1538 DD/ 1537 TD/TT: Mobile Ui Designer: [facility] Radiology, Radiologist, MD - 05/05/2025 [place] [address] Mammography Report Signed Patient: RAHEL DARBY MR#: [id number] : 1980 Acct:[id number] Age/Sex: 44 / F ADM Date: 05/05/25 Loc: MAMMO Attending Dr: Thang Taylor D.O. Ordering Physician: Thang Taylor D.O. Results: Date of Service: 05/05/25 Follow Up: Procedure(s): MM tomosynthesis screening BI Accession Number(s): [id number] cc: Thang Taylor D.O.; Physician,Non-Staff Vinh Patient Name: RAHEL DARBY MR#: [id number] : 1980 Exam Date: 05/05/2025 Ordering Doctor: DR THANG TAYLOR . RADIOLOGY REPORT PROCEDURE: MM TOMOSYNTHESIS SCREENING BI COMPARISON: MM TOMOSYNTHESIS SCREENING BI, 04/10/2023. INDICATIONS: Screening Calculator Name NCI Breast Cancer Risk Assessment Tool 5 Year Breast Cancer Risk 0.50% Lifetime Breast Cancer Risk 7.20% Personal Breast Cancer No Personal Ovarian Cancer No Treatments None Family Cancers None LOCATION: The [facility] BREAST COMPOSITION: There are scattered areas of fibroglandular density. FINDINGS: DIAGNOSTIC CATEGORY 1--NEGATIVE. RIGHT BREAST: No significant suspicious finding. LEFT BREAST: No significant suspicious finding. RECOMMENDATIONS: ROUTINE MAMMOGRAM AND CLINICAL EVALUATION IN 12 MONTHS. Dictated by: Zhao Grossman DO on 05/05/2025 at 15:36 Approved by: Zhao Grossman DO on 05/05/2025 at 15:37 Dictated By: Zhao Grossman M.D. Signed By: 05/05/25 1538 DD/ TD/TT: Mobile Ui Designer: [facility] Study observation (narrative) [facility] MM TOMOSYNTHESIS SCREENING B IOrdered By: Radiologist Radiology on 05-05-2025 [facility] Work Phone: XR Foot - left 3 [facility] Result: AP, medial oblique, lateral views are weight-bearing. Significantly increased calcaneal inclination and decreased talar declination. Bullet hole sinus tarsi. Stacking of the metatarsals noted on the AP view. Slight metatarsus adductus. No fractures or dislocations noted. [facility] Study observation (narrative) [facility] COVID Quick Testingon 2020 Result Negative [employer] Other CBC AUTO DIFFon 02-22-2021 BASO # 0.1 103/ul Normal 0.0-0.1 [facility] Comment on above: Performed By: #### C BC #### [facility] [address] [place] [address] Leah Sapna Basophils/100 WBC (Bld) 1.3 % Normal 0.2-2.0 [facility] Comment on above: Performed By: #### C BC #### [facility] [address] [place], [place] [id number] Leah Sapna EO # 0.2 103/ul Normal 0.0-0.7 [facility] Comment on above: Performed By: #### C BC #### [facility] [address] [place], [place] [id number] Leah Sapna Eosinophils/100 WBC (Bld) 2.5 % Normal 0.9-7.0 [facility] Comment on above: Performed By: #### C BC #### [facility] [address] [place], [place] [id number] Leah Sapna Erythrocyte distribution width (RBC) [Ratio] 13.9 % Normal 11.0-15.0 [facility] Comment on above: Performed By: #### C BC #### [facility] [address] [place], [place] [id number] Leah Sapna Hematocrit (Bld) [Volume fraction] 39.3 % Normal 36.0-48.0 [facility] Comment on above: Performed By: #### C BC #### [facility] [address] [place] [address] Leah Sapna Hemoglobin (Bld) [Mass/Vol] 12.5 g/dL Normal 12.0-16.0 [facility] Comment on above: Performed By: #### C BC #### [facility] [address] [place] [address] Leah Sapna IG # 0.05 10e3/ul Critically high 0.00-0.03 [facility] Comment on above: Performed By: #### C BC #### [facility] [address] [place] [address] Leah Sapna IG % 0.5 % Normal 0.0-0.5 [facility] Comment on above: Performed By: #### C BC #### [facility] [address] [place] [address] Leah Sapna LYMPH # 2.7 103/ul Normal 1.2-3.8 [facility] Comment on above: Performed By: #### C BC #### [facility] [address] [place] [address] Leah Alejo Lymphocytes/100 WBC (Bld) 29.2 % Normal 20.5-60.0 [facility] Comment on above: Performed By: #### C BC #### [facility] [address] [place] [address] Leah Alejo MANUAL DIFF REQ NO Normal [facility] Comment on above: Performed By: #### C BC #### [facility] [address] [place] [address] Leahpoornima Alejo MCH (RBC) [Entitic mass] 28.3 pg Normal 26.7-34.0 [facility] Comment on above: Performed By: #### C BC #### [facility] [address] [place] [address] Leahpoornima Alejo MCHC (RBC) [Mass/Vol] 31.8 g/dL Normal 29.9-35.2 [facility] Comment on above: Performed By: #### C BC #### [facility] [address] [place], [place] [address] Leah Alejo MCV (RBC) [Entitic vol] 89.1 fL Normal 81.0-99.0 [facility] Comment on above: Performed By: #### C BC #### [facility] [address] [id number] Leahpoornima Ngen MONO # 0.9 103/ul Critically high 0.3-0.8 [facility] Comment on above: Performed By: #### C BC #### [facility] [address] [id number] Leah Alejo Monocytes/100 WBC (Bld) 10.0 % Normal 1.7-12.0 [facility] Comment on above: Performed By: #### C BC #### [facility] [address] [id number] Leah Sapna NEUT # 5.2 103/ul Normal 1.4-6.5 [facility] Comment on above: Performed By: #### C BC #### [facility] [address] [id number] Leah Alejo Neutrophils/100 WBC (Bld) 56.5 % Normal 43.0-75.0 [facility] Comment on above: Performed By: #### C BC #### [facility] [address] [id number] Leah Alejo Platelet mean volume (Bld) [Entitic vol] 9.2 fL Critically low 9.5-13.5 [facility] Comment on above: Performed By: #### C BC #### [facility] [address] [id number] Leah Sapna PLT 329 103/ul Normal 150-450 [facility] Comment on above: Performed By: #### C BC #### [facility] [address] [id number] Leah Sapna RBC 4.41 106/ul Normal 4.20-5.40 [facility] Comment on above: Performed By: #### C BC #### [facility] [address] [address] Leah Alejo WBC 9.2 103/ul Normal 4.0-11.0 [facility] Comment on above: Performed By: #### C BC #### [facility] [address] [id number] Leah Alejo PREG QUANT HCGon 02-22-2021 HCG QUANT <1 Normal [facility] Comment on above: Performed By: #### P REGQNT #### [facility] [address] [address] Leah Alejo HCG RANGE SEE BELOW Normal [facility] Comment on above: Result Comment: 5-50 0-1 WEEK 40-300 1-2 WEEKS 100-1,000 2-3 WEEKS 500-6,000 3-4 WEEKS 5,000-200,000 1-2 MONTHS 10,000-100,000 2-3 MONTHS 3,000-50,000 2ND TRIMESTER 1,000-50,000 3RD TRIMESTER Performed By: #### P REGQNT #### [facility] [address] [id number] Leah Alejo Covid-19 PCR (CVDTB)on 02-05 SARS-CoV-2 (COVID-19) RNA JONNY+probe Ql (Unsp spec) Not detected Normal NOT DETECTED [facility] Comment on above: Result Comment: This test is not yet approved or cleared by the [place] FDA. When there are no FDA-approved or cleared tests available, and other criteria are met, FDA can make tests available under an emergency access mechanism called an Emergency Use Authorization (EUA). The EUA for this test is supported by the Software Analyst of Health and Human Service's (HHS's) declaration [...] consistent with SARS-CoV-2. Performed By: #### C VDTBH #### [facility] [address] [place] [address] Leah Alejo PAP ACOG PANEL 2: 30 to 65on 02-05-2021 . . Normal [facility] Comment on above: Result Comment: Perf ormed at: WB Performed By: #### 4 [id number] #### [facility] [address] [place] [address] Sapna Age Gdln ACOG Testing 30-65 Normal [facility] Comment on above: Performed By: #### 4 [id number] #### [facility] [address] [place] [address] DIAGNOSIS: Comment Normal [facility] Comment on above: Result Comment: NEGA TIVE FOR INTRAEPITHELIAL LESION OR MALIGNANCY. Performed at: WB Performed By: #### [id number] #### [facility] [address] [place] [address] HPV Aptima Negative Normal Negative [facility] Comment on above: Result Comment: This nucleic acid amplification test detects fourteen high-risk HPV types (16,18,31,33,35,39,45,51,52,56,58,59,66,68) without differentiation. Performed at: =G Performed By: #### 4 [id number] #### [facility] [address] [place] [address] Methodology: Comment Normal [facility] Comment on above: Result Comment: This liquid based ThinPrep(R) pap test was screened with the use of an image guided system. Performed at: WB Performed By: #### [id number] #### [facility] [address] [place] [address] Note: Comment Normal [facility] Comment on above: Result Comment: The Pap smear is a screening test designed to aid in the detection of premalignant and malignant conditions of the uterine cervix. It is not a diagnostic procedure and should not be used as the sole means of detecting cervical cancer. Both false-positive and false-negative reports do occur. . Performed at: WB Performed By: #### [id number] #### [facility] [address] [address] Leah Alejo Performed by: Comment Normal [facility] Comment on above: Result Comment: Eduardo Rivas, [employer] (ASCP) Performed at: WB Performed By: #### 4 [id number] #### [facility] [address] [address] Leah Alejo Specimen adequacy: Comment Normal [facility] Comment on above: Result Comment: Sati sfactory for evaluation. Endocervical and/or squamous metaplastic cells (endocervical component) are present. Performed at: WB Performed By: #### 4 [id number] #### [facility] [address] [address] Leah Alejo US PELVIS AND TRANSVAGon US [...] by: INNA TORREZ Date: 2021-02-04 15:32 Normal [facility] CBC AUTO DIFFon 02-02-2021 BASO # 0.1 103/ul Normal 0.0-0.1 [facility] Comment on above: Performed By: #### C BC ####[facility] [address] [address]Gerken Sapna Basophils/100 WBC (Bld) 1.1 % Normal 0.2-2.0 [facility] Comment on above: Performed By: #### C BC ####[facility] [address] [place], [place] [address]Gerken Sapna EO # 0.3 103/ul Normal 0.0-0.7 [facility] Comment on above: Performed By: #### C BC ####[facility] [address] [place], [place] [address]ken Sapna Eosinophils/100 WBC (Bld) 2.8 % Normal 0.9-7.0 [facility] Comment on above: Performed By: #### C BC ####[facility] [address] [place] [address] Sapna Erythrocyte distribution width (RBC) [Ratio] 13.3 % Normal 11.0-15.0 [facility] Comment on above: Performed By: #### C BC ####[facility] [address] [place] [address] Sapna Hematocrit (Bld) [Volume fraction] 39.6 % Normal 36.0-48.0 [facility] Comment on above: Performed By: #### C BC ####[facility] [address] [place], [place] [address]Gerken Sapna Hemoglobin (Bld) [Mass/Vol] 12.5 g/dL Normal 12.0-16.0 [facility] Comment on above: Performed By: #### C BC ####[facility] [address] [place], [place] [address]ken Sapna IG # 0.05 10e3/ul Critically high 0.00-0.03 [facility] Comment on above: Performed By: #### C BC ####[facility] [address] [place], [place] [address]Gerken Sapna IG % 0.5 % Normal 0.0-0.5 [facility] Comment on above: Performed By: #### C BC ####[facility] [address] [place], [place] [address]Gerken Sapna LYMPH # 3.4 103/ul Normal 1.2-3.8 [facility] Comment on above: Performed By: #### C BC ####[facility] [address] [place] [address] Sapna Lymphocytes/100 WBC (Bld) 34.2 % Normal 20.5-60.0 [facility] Comment on above: Performed By: #### C BC ####[facility] [address] [place] [address] Sapna MANUAL DIFF REQ NO Normal [facility] Comment on above: Performed By: #### C BC ####[facility] [address] [place] [address] Sapna MCH (RBC) [Entitic mass] 28.2 pg Normal 26.7-34.0 [facility] Comment on above: Performed By: #### C BC ####[facility] [address] [place] [address] Sapna MCHC (RBC) [Mass/Vol] 31.6 g/dL Normal 29.9-35.2 [facility] Comment on above: Performed By: #### C BC ####[facility] [address] [place] [address] Sapna MCV (RBC) [Entitic vol] 89.2 fL Normal 81.0-99.0 [facility] Comment on above: Performed By: #### C BC ####[facility] [address] [place] [address] Sapna MONO # 1.0 103/ul Critically high 0.3-0.8 [facility] Comment on above: Performed By: #### C BC ####[facility] [address] [place], [place] [address]ken Sapna Monocytes/100 WBC (Bld) 10.5 % Normal 1.7-12.0 [facility] Comment on above: Performed By: #### C BC ####[facility] [address] [place] [address] Sapna NEUT # 5.0 103/ul Normal 1.4-6.5 [facility] Comment on above: Performed By: #### C BC ####[facility] [address] [address]Leah Alejo Neutrophils/100 WBC (Bld) 50.9 % Normal 43.0-75.0 [facility] Comment on above: Performed By: #### C BC ####[facility] [address] [place] [address]Leah Alejo Platelet mean volume (Bld) [Entitic vol] 9.2 fL Critically low 9.5-13.5 [facility] Comment on above: Performed By: #### C BC ####[facility] [address] [id number] Alejo PLT 322 103/ul Normal 150-450 [facility] Comment on above: Performed By: #### C BC ####[facility] [address] [address]Leah Alejo RBC 4.44 106/ul Normal 4.20-5.40 [facility] Comment on above: Performed By: #### C BC ####[facility] [address] [place] [id number] Alejo WBC 9.8 103/ul Normal 4.0-11.0 [facility] Comment on above: Performed By: #### C BC ####[facility] [address] [place] [id number] Alejo PREG QUANT HCGon 02-02-2021 HCG QUANT <1 Normal [facility] Comment on above: Performed By: #### T SH, PREGQNT #### [facility] [address] [place], [place] [address] Leah Alejo HCG RANGE SEE BELOW Normal [facility] Comment on above: Result Comment: 5-50 0-1 WEEK 40-300 1-2 WEEKS 100-1,000 2-3 WEEKS 500-6,000 3-4 WEEKS 5,000-200,000 1-2 MONTHS 10,000-100,000 2-3 MONTHS 3,000-50,000 2ND TRIMESTER 1,000-50,000 3RD TRIMESTER Performed By: #### T SH, PREGQNT #### [facility] [address] [place] [address] Leah Alejo PROTIMEon 02-02-2021 INR Coag (PPP) [Relative time] 0.94 {INR} Normal [facility] Comment on above: Performed By: #### P TT, PT #### [facility] [address] [place] [address] Leah Sapna INR GUIDELINES SEE BELOW Normal The [facility] Comment on above: Result Comment: RENAY RED INR: 2.0 - 3.0 CONDITIONS NOT LISTED BELOW 2.5 - 3.5 FOR PROSTHETIC HEART VALVE REPLACEMENT 2.5 - 3.5 RECURRENT THROMBOSIS Performed By: #### P TT, PT #### [facility] [address] [place] [address] Leahpoornima Alejo PT Coag (PPP) [Time] 10.3 s Normal 9.0-11.6 [facility] Comment on above: Performed By: #### P TT, PT #### [facility] [address] [place] [address] Leahpoornima Alejo PTTon 02-02-2021 aPTT Coag (Bld) [Time] 27.6 s Normal 22.3-36.2 [facility] Comment on above: Performed By: #### P TT, PT #### [facility] [address] [place] [address] Leahpoornima Alejo TSHon 02-02-2021 TSH 4.874 uIU/mL Critically high 0.470-4.680 [facility] Comment on above: Performed By: #### T SH, PREGQNT #### [facility] [address] [place] [address] Leah Sapna TSH RANGE SEE BELOW Normal [facility] Comment on above: Result Comment: <0.3 4 UIU/ml HYPERTHYROID 0.34-5.60 UIU/ml EUTHYROID >5.60 UIU/ml HYPOTHYROID Performed By: #### T SH, PREGQNT #### [facility] [address] [place] [address] Leah Alejo Vital Signs Date Time Vital Sign Value Performing Clinician Facility 05-31-2025 08:29-0400 Body mass index (BMI) [Ratio] 35.11 kg/m2 Joy Gayle ROOF FIXER Work Phone: [facility] 05-31-2025 08:29-0400 Body weight 98.66 kg Joy Ganterly ROOF FIXER Work Phone: [facility] 05-31-2025 08:29-0400 Diastolic blood pressure 72 mm[Hg] Joy Ganterly ROOF FIXER Work Phone: [facility] 05-31-2025 08:29-0400 Systolic blood pressure 108 mm[Hg] Joy Ganterly ROOF FIXER Work Phone: [facility] 05-19-2025 10:13-0400 Body height 165.1 cm Sarina Rg MD Work Phone: [facility] 05-19-2025 10:13-0400 Body mass index (BMI) [Ratio] 36.08 kg/m2 Sarina Rg MD Work Phone: [facility] 05-19-2025 10:13-0400 Body weight 98.34 kg Sarina Rg MD Work Phone: [facility] 05-19-2025 10:13-0400 Diastolic blood pressure 67 mm[Hg] Sarina Rg MD Work Phone: [facility] 05-19-2025 10:13-0400 Heart rate 90 /min Sarina Rg MD Work Phone: [facility] 05-19-2025 10:13-0400 Systolic blood pressure 118 mm[Hg] Sarina Rg MD Work Phone: [facility] 05-09-2025 15:23-0400 Body height 167.6 cm Manisha Ibrahim DPM Work Phone: [facility] 05-09-2025 15:23-0400 Body mass index (BMI) [Ratio] 34.54 kg/m2 Manisha Ibrahim DPM Work Phone: [facility] 05-09-2025 15:23-0400 Body weight 97.07 kg Manisha Ibrahim DPM Work Phone: [facility] 04-04-2025 14:32-0400 Body height 167.6 cm Manisha Ibrahim DPM Work Phone: [facility] 04-04-2025 14:32-0400 Body mass index (BMI) [Ratio] 34.54 kg/m2 Manisha Ibrahim DPM Work Phone: [facility] 04-04-2025 14:32-0400 Body weight 97.07 kg Manisha Ibrahim DPM Work Phone: [facility] 03-21-2025 15:17-0400 Body height 165.1 cm Sarina Rg MD Work Phone: [facility] 03-21-2025 15:17-0400 Body mass index (BMI) [Ratio] 36.61 kg/m2 Sarina Rg MD Work Phone: [facility] 03-21-2025 15:17-0400 Body temperature 98.01 [degF] Sarina Rg MD Work Phone: [facility] 03-21-2025 15:17-0400 Body weight 99.79 kg Sarina Rg MD Work Phone: [facility] 03-21-2025 15:17-0400 Diastolic blood pressure 72 mm[Hg] Sarina Rg MD Work Phone: [facility] 03-21-2025 15:17-0400 Heart rate 90 /min Sarina Rg MD Work Phone: [facility] 03-21-2025 15:17-0400 SaO2% (BldA) [Mass fraction] 98 % Sarina Rg MD Work Phone: [facility] 03-21-2025 15:17-0400 Systolic blood pressure 126 mm[Hg] Sarina Rg MD Work Phone: [email or web address] 07-15-2024 14:03-0500 Body mass index (BMI) [Ratio] 45.74 kg/m2 Sarina Rg MD Work Phone: [email or web address] 07-15-2024 14:03-0500 Body weight 125.65 kg Sarina Rg MD Work Phone: [email or web address] 07-15-2024 14:03-0500 Diastolic blood pressure 59 mm[Hg] Sarina Rg MD Work Phone: [email or web address] 07-15-2024 14:03-0500 Heart rate 80 /min Sarina Rg MD Work Phone: [email or web address] 07-15-2024 14:03-0500 Systolic blood pressure 128 mm[Hg] Sarina Rg MD Work Phone: [email or web address] 08-15-2021 10:15-0500 Body height 168.91 cm Nuria Ginty Other [employer] Other 08-15-2021 10:15-0500 Body mass index (BMI) [Ratio] 34.97 kg/m2 Nuria Ginty Other [employer] Other 08-15-2021 10:15-0500 Body temperature 99 [degF] Nuria Ginty Other [employer] Other 08-15-2021 10:15-0500 Body weight 99.79 kg Nuria Ginty Other [employer] Other 08-15-2021 10:15-0500 Respiratory rate 18 /min Nuria Ginty Other [employer] Other 08-15-2021 10:15-0500 SaO2% (BldA) [Mass fraction] 98 % Nuria Ginty Other [facility] [employer] Other Encounters Encounter Date Encounter Type Care Provider Facility Start: 05-31-2025 End: 05-31-2025 Bamboo flowsheet Joy Araujo ROOF FIXER Work Phone: [facility] Start: 05-31-2025 End: 05-31-2025 Bamboo flowsheet Joy Araujo ROOF FIXER Work Phone: [facility] Start: 05-31-2025 End: 05-31-2025 Patient encounter procedure Joy Araujo ROOF FIXER Work Phone: [facility] Start: 05-31-2025 End: 05-31-2025 Periodic preventive med est patient 40-64yrs Joy Araujo ROOF FIXER Work Phone: [facility] Comment on above: Alopecia (Primary Dx ); Well woman exam with routine gynecological exam; Encounter for screening mammogram for malignant neoplasm of breast Start: 05-19-2025 End: 05-19-2025 Office outpatient visit 15 minutes Sarina Rg MD Work Phone: [facility] Comment on above: Paronychia of finger of left hand (Primary Dx); Impetigo Start: 05-19-2025 End: 05-19-2025 ambulatory SARINA RG [facility] Start: 05-09-2025 End: 05-09-2025 ambulatory MANISHA IBRAHIM Not Available Start: 05-09-2025 End: 05-09-2025 Office outpatient visit 15 minutes Manisha Ibrahim DPM Work Phone: [facility] Comment on above: Peroneal tendinitis of left lower extremity (Primary Dx); Sinus tarsi syndrome of left foot; Varus deformity, not elsewhere classified, left ankle Start: 05-09-2025 End: 05-09-2025 Bamboo flowsheet Manisha Ibrahim DPM Work Phone: [facility] Start: 05-09-2025 End: 05-09-2025 Bamboo flowsheet Manisha Ibrahim DPM Work Phone: [facility] Start: 05-05-2025 End: 05-05-2025 Clinisync Result Encounter Thang Bourgeoiso DO Work Phone: [facility] External Department Unsolicited Start: 05-05-2025 End: 05-05-2025 Clinisync Result Encounter Thang Brandon DO Work Phone: [facility] External Department Unsolicited Start: 04-04-2025 End: 04-04-2025 Office outpatient new 45 minutes Manisha Ibrahim DPM Work Phone: [facility] Comment on above: Peroneal tendinitis of left lower extremity (Primary Dx); Sinus tarsi syndrome of left foot; Instability of left ankle joint; Difficulty walking; Varus deformity, not elsewhere classified, left ankle Start: 04-04-2025 End: 04-04-2025 ambulatory MANISHA IBRAHIM Not Available Start: 04-04-2025 End: 04-04-2025 Bamboo flowsheet Manisha Ibrahim DPM Work Phone: [facility] Start: 04-04-2025 End: 04-04-2025 Bamboo flowsheet Manisha Ibrahim DPM Work Phone: [facility] Start: 03-21-2025 End: 03-21-2025 Office outpatient visit 15 minutes Sarina Rg MD Work Phone: [facility] Comment on above: Paresthesia of left foot (Primary Dx); Class 3 severe obesity due to excess calories without serious comorbidity with body mass index (BMI) of 45.0 to 49.9 in adult ([facility]) Start: 03-21-2025 End: 03-21-2025 ambulatory SARINA RG [facility] Start: 07-29-2024 End: 08-01-2024 [facility]phone [facility] Comment on above: Medication Problem Start: 07-15-2024 End: 07-15-2024 Office outpatient visit 15 minutes Sarina Rg MD Work Phone: [facility] Comment on above: Class 3 severe obesi ty due to excess calories without serious comorbidity with body mass index (BMI) of 45.0 to 49.9 in adult (CMS-HCC) (Primary Dx) Start: 07-15-2024 End: 07-15-2024 ambulatory SARINA RG [facility] Start: 08-15-2021 End: 08-15-2021 ambulatory Nuria Gisierray Other [employer] Other Start: 08-15-2021 Office outpatient vi sit 15 minutes Nuria Ginty [facility] Start: 02-22-2021 End: 02-22-[address] THANG TAYLOR Facility:[facility] Start: 02-21-2021 Encounter for preprocedural laboratory examination DR THANG TAYLOR [facility] Start: 02-19-[address] THANG TAYLOR Facility [...] Date Procedure Procedure Detail Performing Clinician Start: 05-05-2025 MM TOMOSYNTHESIS SCR EENING BI Thang Taylor DO Work Phone: Start: 05-05-2025 Mammography Thang salas DO Work Phone: Start: 04-04-2025 Radex foot complete minimum 3 [...] Activity Detail Author Start: 04-17-2028 Screening for malignant neoplasm of cervix HPV/[facility] Start: 04-07-2028 Screening for malignant neoplasm of cervix [facility] Start: 06-05-2026 End: 06-05-2026 Patient encounter procedure 06/05/2026 8:30 AM EDT Procedure Visit [facility] [address] [place] [id number] Thang Taylor, [address] [place] [address] [facility] Start: 05-19-2026 Adult BMI Screening Adult BMI Screen ing [facility] Start: 05-19-2026 Tobacco Screening Tobacco Screening [facility] Start: 05-05-2026 Screening for malignant neoplasm of breast Mammogram [facility] Start: 04-07-2026 Screening for malignant neoplasm of cervix Pap Smear [facility] Start: 03-21-2026 Adult BMI Screening Adult BMI Screen ing [facility] Start: 03-21-2026 Depression Screening Depression Scre ening [facility] Start: 03-21-2026 Tobacco Screening Tobacco Screening [facility] Start: 01-31-2026 DTaP,Tdap and Td Vaccines (3 - Td or Tdap) DTaP,Tdap and Td Vaccines (3 - Td or Tdap) [facility] Start: 07-15-2025 Adult BMI Screening Adult BMI Screen ing [facility] Start: 07-15-2025 Tobacco Screening Tobacco Screening [facility] Start: 06-20-2025 End: 06-20-2025 Patient encounter procedure 06/20/2025 3:15 PM EDT Office Visit [facility] [address] [place] [address] Manisha Ibrahim DPM [address] [place] [address] [facility] Start: 05-31-2025 End: 05-31-2025 Patient encounter procedure [facility] Comment on above: Arrived Start: 05-09-2025 End: 05-09-2025 Patient encounter procedure 05/09/2025 3:15 PM EDT Office Visit [facility] [address] [place] [address] Manisha Ibrahim DPM [address] [place] [address] [facility] Start: 05-08-2025 COVID-19 Vaccine ( season) COVID-19 Vaccine () [facility] Start: 05-08-2025 Influenza vaccination [facility] Start: 04-04-2025 End: 04-04-2025 Patient encounter procedure 04/04/2025 2:30 PM EDT Office Visit [facility] [address] [place] [address] Manisha Ibrahim DPM [address] [place] [address] [facility] Comment on above: Arrived Start: 08-25-2024 Adult BMI Screening Adult BMI Screen ing [facility] Start: 08-25-2024 Tobacco Screening Tobacco Screening [facility] Start: 06-15-2024 Depression Screening Depression Scre ening [facility] Start: 05-08-2024 COVID-19 Vaccine () COVID-19 Vaccine () [facility] Start: 05-08-2024 Influenza vaccination Influenza Vacc ine [facility] Start: 2022 Screening for malignant neoplasm of breast Mammogram [facility] Start: 2000 Adult BMI Follow Up Plan Adult BMI Follow Up Plan [facility] THIN PREP TIS PAP AN D HR HPV DNA THIN PREP TIS PAP AND HR HPV DNA Pathology and Cytology Routine Well woman exam with routine gynecological exam Ordered: 05/31/2025 [facility] Work Phone: Comment on above: Ordered: 05/31/2025 Immunizations Immunization Date Immunization Notes Care Provider Fa cility 05-08-2022 influenza, injectabl e, quadrivalent, preservative free Sarina Rg MD Work Phone: [facility] 05-08-2022 influenza virus vaccine, unspecified formulation Sarina Rg MD Work Phone: [facility] 07-27-2021 Influenza, injectabl e, [facility] [place] Canine Kidney, preservative free, quadrivalent Sarina Rg MD Work Phone: [facility] 01-03-2021 COVID-19, mRNA, LNP- S, PF, 100mcg/0.5mL Dose Sarina Rg MD Work Phone: [facility] 12-06-2020 COVID-19, mRNA, LNP- S, PF, 100mcg/0.5mL Dose Sarina Rg MD Work Phone: [facility] 06-27-2020 influenza virus vaccine, unspecified formulation Sarina Rg MD Work Phone: [facility] 06-18-2019 influenza, injectabl e, quadrivalent, preservative free Sarina Rg MD Work Phone: [facility] 09-23-2017 influenza, injectabl e, quadrivalent, contains preservative Sarina Rg MD Work Phone: [facility] 07-04-2016 influenza virus vaccine, unspecified formulation Sarina Rg MD Work Phone: [facility] 02-01-2016 tetanus toxoid, redu martha diphtheria toxoid, and acellular pertussis vaccine, adsorbed Sarina Rg MD Work Phone: [facility] 09-29-2013 influenza virus vaccine, unspecified formulation Sarina Rg MD Work Phone: [facility] 09-30-2010 tetanus toxoid, redu martha diphtheria toxoid, and acellular pertussis vaccine, adsorbed Sarina Rg MD Work Phone: [facility] Payers Date Payer Category Payer [facility] [id number] 2024 Unknown [id number] [address] [facility] Managed Care - Other [id number] 1982 Unknown [id number]. 2.593 1982 Unknown [id number] [id number]. 2.593 1982 Unknown [id number] [id number]. 2.593 1982 Unknown [id number] 2.16.840.1.196902.3.579. 2.593 1982 Unknown [id number] [id number]. 2.593 1982 Unknown [id number] [id number]. 2.593 1982 Unknown [id number] [id number]. 2.1259 1982 Unknown [id number] [id number]. 2.1259 1982 Unknown [id number] [id number]. 2.1259 1982 Unknown [id number] [id number]. 2.1286 1982 Unknown [id number] [id number]. 2.1286 1982 Unknown [id number] [id number]. 2.1286 1959 Self-pay 1957 Unknown [id number] Social History Date Type Detail Facility Unknown if ever smoked [employer] Other Start: 07-15-2024 End: 05-09-2025 Sex Assigned At [facility] Start: 08-25-2023 Tobacco smoking status [facility] Ex-smoker [facility] History of tobacco use Current smoker [facility] History of tobacco use Cigarette Smoker P [facility] Start: 08-25-2023 Tobacco use and exposure Smokeless tobacco non-user [facility] Start: 07-15-2024 End: 05-19-2025 Alcoholic beverage intake Ex-drinker (finding) [facility] Start: 07-15-2024 End: 05-09-2025 History of Social function [facility] How hard is it for y ou to pay for the very basics like food, housing, medical care, and heating Not very hard [facility] Adolescent depressio n screening assessment 0 [facility] Start: 1980 Sex assigned at Female [facility] Start: 04-12-2015 Sex Female (finding) [facility] Start: 12-10-2018 Gender identity Identifies as female gender (finding) [facility] Start: 12-10-2018 Sexual orientation Heterosexual (finding) [facility] Start: 1980 Sex assigned at Not on file [facility] Start: 04-04-2025 Tobacco smoking status NHIS Never smoked tobacco [facility] Start: 04-04-2025 Tobacco use and exposure User of smokeless tobacco [facility] Start: 04-04-2025 End: 05-31-2025 Alcoholic beverage intake Current drinker of alcohol (finding) [facility] Start: 04-04-2025 Alcohol Comment rarely [facility] Clinical Notes 02-22-2021 to 05-31-2025 Joy Araujo NP - 05/31/2025 8:30 AM Elisa Rg MD - 05/19/2025 10:15 AM Marie Ibrahim DPM - 05/09/2025 3:15 PM Marie Ibrahim DPM - 04/04/2025 2:30 PM EDT Note Date & Type Note Facility 05-31-2025 History of Presen t illness Narrative Reason for Appointment: Patient ID: Rahel Darby [...] nursing note reviewed. Exam conducted with a double end production grinder present. Vitals: Estimated body mass index is 35.11 kg/m as calculated from the following: Height as [...] by Merline Rubio MA on behalf of: Joy Araujo NP documented in this encounter [facility] 05-19-2025 History of Presen t illness Narrative Subjective [...] times a day. documented in this encounter [facility] 05-09-2025 History of Presen t illness Narrative Images from the original note were not included. Subjective Patient ID: Rahel Darby is a 44 y.o. female who presents for Follow-up (Established patient presents today for 1 month fuv for left foot pain. Patient states pain is a lot better, patient has been wearing ASO brace, and patient did purchase powerstep inserts. Patient states she feels a pulling on the bottom of her feet when not wearing them. SS:9.5). HPI Established patient returns to clinic for follow up evaluation of suspected peroneal tendinitis of the left lower extremity. Patient has been using an ASO brace. She states she wore it very consistently for a week and it seem to significantly help. After that she has not been using it as much. Patient states that she still has some soreness occasionally over the lateral ankle and foot but overall she is feeling much better. Review of Systems Constitutional: Negative for activity [...] Inject under the skin, Disp: , Rfl: predniSONE (Deltasone) 10 MG tablet, Take twice daily for 5 days, then take once daily for 5 days. (Patient not taking: Reported on 05/09/2025), Disp: 15 tablet, Rfl: 0 Allergies Patient [...] rigidity. Comments: Weightbearing examination reveals cavovarus morphology. Left foot: Very minimal tenderness along the sinus tarsi with some [...] and Affect: Mood normal. Behavior: Behavior normal. Assessment/Plan ICD-10-CM 1. Peroneal tendinitis of left lower extremity M76.72 2. 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 Varus deformity, not elsewhere classified, left ankle M21.172 Patient examined and evaluated. Reviewed previous imaging studies in detail. Overall she has made some improvement. She still has some occasional soreness along the lateral ankle. Discussed that she will be at high-risk for recurrent lateral ankle problems due to the cavovarus nature of her foot. Recommend that she continue with the supportive shoes and power step orthotics. Consider custom orthotics in the future. At this time we can transition her out of the ASO brace. She will use the brace as needed for heavy activity or for uneven ground. Otherwise activity as tolerated without the brace. Discussed repeating oral anti-inflammatory regimen. Patient elects to take [id number] anti-inflammatories as necessary. Continue to ice, heat with contrast bathing as necessary. Follow up in 6 weeks. Consider repeating oral regimen or possibly an MRI depending on symptomatology at that time. This note was created with the assistance of a speech recognition program. While intending to generate a timely document that accurately reflects the content of the visit, no guarantee can be provided that every grammatical or spelling mistake has been or will be identified or corrected. Thank you for your understanding. Manisha Ibrahim DPM documented in this encounter [facility] 04-04-2025 History of Presen t illness Narrative Images from the original note were not included. Subjective Patient ID: Rahel Darby is a 44 y.o. female who presents for Foot Pain (Pt is here today for shooting, burning pains Lt foot lateral side, she works nights at a [id number]. Has been presents for over a year. [...] states that she works nights at a [employer] in states that during along night where [...] Manisha Ibrahim DPM documented in this encounter [facility] 03-21-2025 History of Presen t illness [...] (BMI) of 45.0 to 49.9 in adult ([facility]) - phentermine (ADIPEX-P) 37.5 mg tablet; Take 1 tablet (37.5 mg total) by mouth every morning before breakfast. documented in this encounter [email or web address] 07-29-2024 Miscellaneous Notes Patient called and said her Tirzepatide is not covered by insurance and would like you to call in Phentermine in for her instead. documented in this encounter [email or web address] 07-29-2024 Telephone encounter Note Patient called and said her Tirzepatide is not covered by insurance and would like you to call in Phentermine in for her instead. [email or web address] 07-15-2024 History of Presen t illness [...] (BMI) of 45.0 to 49.9 in adult ([facility]) - tirzepatide, weight loss, 2.5 mg/0.5 mL pen injector; Inject 2.5 mg under the skin every 7 days. documented in this encounter [email or web address] [employer] 08-15-2021 Evaluation note Encounter Date Diagnosis Assessment [...] Patient care instructions given in writting by [facility] document [employer] Other 06-18-2021 NoteThe [place], [place] NAME: KRYSTYNA RAHEL Myranda DATE OF : MEDICAL REC#: [id number] OFFICER LIEUTENANT: [address] ADMIT DATE: 02/22/2021 10:26:00 GAS ENGINEER DATE: 02/25/2021 08:00 DICTATING PHYSICIAN: THANG TAYLOR DICTATION DATE: 02/22/2021 12:00 OPERATIVE NOTE OPERATION DATE: 02-22-21 ANESTHETIC:General. CUPOLA MECHANIC:None. PREOPERATIVE DIAGNOSIS:Menorrhagia. POSTOPERATIVE DIAGNOSIS:Menorrhagia. PROCEDURE NAME:Nicci endometrial [...] Taylor DO on 03/11/2021 03:49 PM EDT [facility] Signed and Approved by: DR THANG TAYLOR . 03/11/2021 15:49:00[facility] Class 3 severe obesity due to excess calories without serious comorbidity with body mass index (BMI) of 45.0 to 49.9 in adult ([facility] Primary [facility] Diagnosis Paresthesia of left foot- Primary Class 3 severe obesity due to excess calories without serious comorbidity with body mass index (BMI) of 45.0 to 49.9 in adult ([facility]) [facility] Diagnosis Peroneal tendinitis of left lower extremity- Primary 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 Difficulty walking Difficulty in walking Varus deformity, not elsewhere classified, left ankle documented [facility] encounter [facility]* Diagnosis Peroneal tendinitis of left lower extremity- Primary 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, not elsewhere classified, left ankle documented in this encounter [facility]* Diagnosis Paronychia of finger of left hand- Primary Impetigo [facility] Diagnosis Alopecia- Primary Well woman exam with routine gynecological exam Routine gynecological examination Encounter for screening mammogram for malignant neoplasm of breast documented in this encounter [facility] general Narrative - Reported* Type Description Date Surgical History tubal ligation Hospitalization History childbirths [employer] Other InstructionsNot on filedocumented in this encounter [facility] filedocument[facility] filedocumented in [facility] encounter [facility] Summary Purpose Family History No Family History Records FoundNo Family History Records FoundNo Family History Records Found Advance Directives No Advanced Directives Records FoundNo Advanced Directives Records FoundNo Advanced Directives Records Found Additional Source Comments INFORMATION SOURCE (unrecogn ized section and content) DATE CREATED AUTHOR 03/14/2021 [facility] DATE CREATED AUTHOR AUTHOR'S ORGANIZ ATION 05/10/2025 [facility] EPIC DATE CREATED AUTHOR AUTHOR'S ORGANIZ ATION 05/21/2025 [facility] REASON FOR VISIT (unrecogniz ed section and [...] 9.5 Specialty Diagnoses / Procedures Referred By Ramírez caban Referred To Contact Podiatry Diagnoses Paresthesia of left foot Procedures 221 ([email or web address]) - Ambulatory referral to Podiatry ([facility]) Sarina Rg MD [address] [place] [address], [address] [place] [address] Phone: tel: fax: Manisha Ibrahim, DPM [address] [place] [address] Phone: tel: fax: Referral ID Status Reason Start Date Expiration Date Visits Re quested Visits Authorized [id number] Closed 03/21/2025 03/21/2026 1 1 Reason Comments Follow-up Established patient presents today for 1 month fuv for left foot pain. Patient states pain is a lot better, patient has been wearing ASO brace, and patient did purchase powerstep inserts. Patient states she feels a pulling on the bottom of her feet when not wearing them. SS:9.5 Reason Comments Hand Pain Left ring finger swe lling, red, pus Hair/Scalp Problem Itching, scabbing th en picks the scab Reason Comments [facility] Visit Care Teams (unrecognized sec tion and content) [employer] Worker Helper Relationship Specialty Start Date End Date Sarina Rg MD [address] [place] [address], [address] [place] [address] PCP - General Pediatrics 11/09/19 [employer] Helper Relationship Specialty Start Date End Date Sarina Rg MD [address] [place] [address], [address] [place] [address] PCP - General Pediatrics 11/09/19 [employer] Worker Helper Relationship Specialty Start Date End Date Sarina Rg MD [address] [place] [address], [address] [place] [address] PCP - General Pediatrics 11/09/19 [employer] Worker Helper Relationship Specialty Start Date End Date Sarina Rg MD [address] [place] [address], [address] [place] [address] PCP - General Family Medicine 03/23/25 [employer] Worker Helper Relationship Specialty Start Date End Date Sarina Rg MD [address] [place] [address], [address] [place] [address] PCP - General Family Medicine 03/23/25 [employer] Worker Helper Relationship Specialty Start Date End Date Sarina Rg MD [address] [place] [address], [address] [place] [address] PCP - General Family Medicine 03/23/25 [employer] Worker Helper Relationship Specialty Start Date End Date Sarina Rg MD [address] [place] [address], [address] [place] [address] PCP - General Family Medicine 03/23/25 [employer] Worker Helper Relationship Specialty Start Date End Date Sarina Rg MD [address] [place] [address], [address] [place] [address] PCP - General Family Medicine 03/23/25 [employer] Work[employer] Helper Relationship Specialty Start Date End Date Sarina Rg MD [address] [place] [address], [address] [place] [address] PCP - General Pediatrics 11/09/19 [employer] Worker Helper Relationship Specialty Start Date End Date Sarina Rg MD [address] [place] [address], [address] [place] [address] PCP - General Family Medicine 03/23/25 FOR [...] BE BASED ON THE PRIMARY CLINICAL RECORDS. [employer] [facility] provides no warranty or guarantee of the accuracy or completeness of information in this document.
[2025-06-05 19:08] LABS: Age Gdln ACOG Testing Note (.); IGP, Aptima HPV, rfx 16/18,45 Note (.)
== END 2025-05-31 15:18 | disposition home or self-care (01) ==
LOC: LAB 15:17
PROVIDERS: Visit Provider Nurse Practitioner Family
DX: Z01.419 Encounter for gynecological examination (general) (routine) without abnormal findings (principal)
CPT/HCPCS: 87624; 88175